=== PATIENT | female | born 1985 | race Hispanic/Latino ===

== ENCOUNTER → 2020-12-14 10:18 | Outpatient (CLI) | payer OTHER, SELFPAY ==
[2020-12-14 11:28] LABS: Add Manual Diff / Slide Review NO; Basophils Absolute Auto 0 /uL (0-100); Basophils Percent Auto 0.2 % (0-2); Eosinophils Absolute Auto 200 /uL (0-450); Eosinophils Percent Auto 2.8 % (2-4); Hematocrit 42.4 % (36-46); Lymphocytes Absolute Auto 2700 /uL (1100-4500); Lymphocytes Percent Auto 34.4 % (25-40); Mean Corpuscular HGB Conc 32.9 % (30-36); Mean Corpuscular Hemoglobin 28.6 PG (26-34); Mean Corpuscular Volume 86.9 fL (80-100); Monocytes Absolute Auto 400 /uL (0-900); Monocytes Percent Auto 5.8 % (3-14); Neutrophils Absolute Auto 4400 /uL (1500-7000); Neutrophils Percent Auto 56.8 % (50-75); Platelet Count 243 X10^3/uL (150-400); Red Blood Cell Count 4.88 X10^6/uL (4.0-5.2); Red Cell Distribution Width 12.9 % (11.6-14.8); White Blood Cell Count 7.7 X10^3/uL (4.5-11.0)
[2020-12-14 11:36] LABS: Alanine Aminotransferase 18 IU/L (<35); Albumin 4.5 g/dL (3.5-5.0); Albumin Globulin Ratio 1.6 (1.0-2.8); Alkaline Phosphatase 55 U/L (38-126); Aspartate Aminotransferase 23 IU/L (14-36); BUN Creatinine Ratio 12.3 (6-22); Bilirubin Total 0.4 mg/dL (0.2-1.3); Blood Urea Nitrogen 9 mg/dL (7-17); Calcium 9.3 mg/dL (8.4-10.2); Carbon Dioxide 27 mmol/L (22-32); Chloride 106 mmol/L (98-107); Cholesterol 145 mg/dL (140-199); Estimated Glomerular Filt Rate > 60.0 mL/min (>60); Globulin 2.9 g/dL (1.7-4.1); Glucose 105 mg/dL (70-100); HDL Cholesterol 56 mg/dL (40-60); HEMOLYSIS < 15 (0-50); LDL Cholesterol Calculated 81 mg/dL (<100); Potassium 4.3 mmol/L (3.4-5.1); Sodium 138 mmol/L (137-145); Total Protein 7.4 g/dL (6.3-8.2); Triglycerides 40 mg/dL (35-150)
== END ==
PROVIDERS: PCP Registered Nurse; Referring Provider Registered Nurse; Visit Provider Registered Nurse
DX: K64.9 Unspecified hemorrhoids (principal); Z82.49 Family history of ischemic heart disease and other diseases of the circulatory system; Z86.32 Personal history of gestational diabetes
CPT/HCPCS: 36415; 80053; 80061; 85025

== ENCOUNTER → 2021-01-17 10:24 | Outpatient (CLI) | payer OTHER, SELFPAY ==
[2021-01-17 11:29] LABS: COVID19 -Nasal RAPID Negative (Negative)
== END ==
PROVIDERS: PCP Registered Nurse; Referring Provider Surgery; Visit Provider Surgery
DX: Z20.822 Contact with and (suspected) exposure to COVID-19 (principal)
CPT/HCPCS: 87635; C9803

== ENCOUNTER 2021-01-18 09:17 | Day surgery (SDC) | payer OTHER, SELFPAY ==
[2021-01-17 08:46] VITALS: BMI 25.0
[2021-01-18] VITALS (7 sets, daily range): BP systolic 112–136; BP diastolic 60–86; PULSE 65–102; RESP 12–16; TEMP 36.3–36.8; O2SAT 90–99; BMI 25.0
--- NOTE | 2021-01-18 | PATH_ITS ---
[facility] Accession Number: [id number] . 01 Material submitted: . hemorrhoids - HEMORRHOIDS . 01 Clinical history: . SDC . 02 Diagnosis: Hemorrhoids, Hemorrhoidectomy: Portions of hemorrhoid x 4; negative for atypia, dysplasia, or malignancy. [facility] 01/21/2021 1054 Local . 02 Electronically signed: . Birdie Ho MD, Pathologist NPI- [id number] . 01 Gross description: . The specimen is received in formalin, labeled hemorrhoids and consists of four pink-purple wrinkled fragments of skin and mucosa measuring 3.0 x 2.5 x 1.5 cm in aggregate and ranging from 0.6-1.8 cm. The margins are inked blue. The specimen is entirely submitted in cassettes A1-A3. ([id number]) /V 01/19/2021 1126 Local . 02 Pathologist provided ICD-10: K64.9 . 02 CPT . 872508 Performed at: 01 [facility] [address] [place] [address], [place], [place] [id number] MD Isaias Aguilar MD Phone: [phone] Performed at: 02 [facility] [address] [place], [place] [id number] MD Adilia Cortes MD Phone: [phone]
--- NOTE | 2021-01-18 09:55 | PM.PREOP ---
Pre-operative Note Interval Note History & Physical reviewed/Exam performed by Physician: Yes Changes to H&P: No
[2021-01-18] MEDS: LACTATED RINGERS 1,000 ML 100 ML IV (09:59)
--- NOTE | 2021-01-18 10:28 | SUR.OPER ---
Prone on padded OR bed, head in foam head support, gel chest rolls, gel pad under knees, pillow under lower legs, toes free of pressure, arms secured on padded arm boards at <90 degrees abduction. Safety belt at thigh.
[2021-01-18] MEDS: BUPIVACAINE 0.25% (PF) VIAL 30 ML INJ (10:33)
[2021-01-18] MEDS: BUPIVACAINE LIPOSOME 266 MG/20 ML VIAL INJ (10:34)
[2021-01-18] MEDS: DIBUCAINE 1% OINT 28 GM 1 APPLIC TOP (10:35)
--- NOTE | 2021-01-18 11:01 | PM.OP.1 ---
Operative Date/Time/Diagnoses Date of procedure: 01/18/21 Time of procedure: 11:01 Pre-op diagnosis: Internal hemorrhoids Post-op diagnosis: same Procedure & Clinicians Procedure: Excisional hemorrhoidectomy x3 Same procedure as scheduled: Yes Indications: Prolapsing bleeding hemorrhoids Surgeon: Nimesh Sal Anesthesia Type: General Operative Notes Findings: Grade 3 hemorrhoids with internal and external component Specimen(s): other (Hemorrhoids) Estimated Blood Loss (mL): 50 Procedure in detail: The patient was brought to the operating room placed supine on the table. Bilateral lower extremity compression devices were applied. General anesthesia was induced and they were intubated with an endotracheal tube. They were then placed into prone position and appropriately padded. They were then prepped and draped in usual sterile fashion. Time-out was performed. Rectal block was performed by injecting 20 mL of Exparel into the intersphincteric groove. An internal examination of the anal canal was made. The right anterior and right posterior and left lateral hemorrhoid pedicles freely prolapsed consistent with grade 3. Beginning with the left lateral pedicle it was grasped elevated and excised with electrocautery off the internal sphincter. The mucosal defect was then closed with a running -0 Vicyrl suture. Hemostasis was checked. The procedure was then repeated for the right anterior and posterior. The specimens were passed off the field. Wound was irrigated with saline. Gelfoam coated in Dibucaine ointment 1% was then placed into the anal canal. Sponge and instrument counts were correct at the end of the procedure. They emerged from anesthesia were extubated and transferred to the postoperative care unit in stable condition. Complications: none Post-operative Condition: stable Disposition: same day surgery
[2021-01-18] MEDS: OXYCODONE/ACETAMINOPHEN 5/325 TABLET 1 TAB PO ×2 (11:27→12:04)
[2021-01-18] MEDS: BENZOCAINE/MENTHOL 1 LOZ PKT 1 EACH PO (11:33)
== END 2021-01-18 12:20 | disposition home or self-care (01) ==
PROVIDERS: PCP Registered Nurse; Referring Provider Surgery; Visit Provider Surgery
PROC: (CPT 46260; principal; 2021-01-18 10:15)
DX: K64.2 Third degree hemorrhoids (principal)
CPT/HCPCS: 46260; C9290; J0330; J1100; J2405; J2704; J3010

== ENCOUNTER → 2021-05-04 09:49 | Outpatient (CLI) | payer OTHER, SELFPAY ==
[2021-05-04 11:37] LABS: COVID19 -Nasal RAPID Negative (Negative)
== END ==
PROVIDERS: PCP Registered Nurse; Referring Provider Surgery; Visit Provider Surgery
DX: Z20.822 Contact with and (suspected) exposure to COVID-19 (principal); Z01.812 Encounter for preprocedural laboratory examination
CPT/HCPCS: 87635; C9803

== ENCOUNTER 2021-05-05 09:49 | Day surgery (SDC) | payer OTHER, SELFPAY ==
[2021-04-26 08:33] VITALS: BMI 24.1
[2021-05-05] VITALS (9 sets, daily range): BP systolic 114–138; BP diastolic 75–97; PULSE 76–93; RESP 11–19; TEMP 36.1–36.7; O2SAT 97–100; BMI 24.1
[2021-05-05] MEDS: GABAPENTIN 300 MG CAPSULE PO (10:42)
[2021-05-05] MEDS: SCOPOLAMINE 1 PATCH TOP (10:42)
[2021-05-05] MEDS: ACETAMINOPHEN 325 MG TABLET 975 MG PO (10:43)
--- NOTE | 2021-05-05 10:43 | PM.HP.1 ---
History of Present Illness History of Present Illness Date Patient Seen: 05/05/21 Time Patient Seen: 10:43 Chief complaint: SDC Narrative: 35 year old woman with history of hemorrhoid disease here for elective excisional hemorrhoidectomy. No interval changes in health. Please refer to the H&P from March 2021 for further detail. Patient History Medical History Cervical cancer screening Headache, migraine (~2009) Hemorrhoids (~2013) Surgical History Anesthesia History of surgical removal of ganglion cyst (11/2016) Hx of hemorrhoidectomy (01/18/21) Hx of tubal ligation (12/2018) Family & Social History Family History Grandmother Hypertension Diabetes mellitus Cancer History of heart disease Stroke Grandmother Breast cancer Mother Hypertension Social History: household members spouse,children Tobacco & Substance use: Smoking Status Never smoker alcohol intake never Substance Use Type does not use Meds Home Medications and Allergies Home Medications Medication Instructions Recorded Confirmed Type escitalopram oxalate 20 mg tablet 20 mg PO DAILY #30 tab 03/21/21 05/05/21 Rx (Lexapro) Allergies Allergy/AdvReac Type Severity Reaction Status Date / Time sweet potato Allergy Severe throut Verified 05/05/21 10:02 itchy, eye swelling and itchy. Exam Vital Signs (past 8 hours): - 05/05/21 10:04 05/05/21 10:28 Temperature 98 F 98 F Pulse Rate 84 84 Respiratory Rate 18 18 Blood Pressure 138/84 138/84 Pulse Oximetry 100 100 Oxygen Delivery Method Room Air Narrative Exam Narrative: Constitutional-She is oriented to person, place and time. No apparent distress Cardiovascular- regular rate, no peripheral edema Pulmonary-unlabored respiratory effort, no audible wheezing Abdominal-soft, non-tender, non-distended Musculoskeletal-no cyanosis or clubbing Neurological-nonfocal, normal strength throughout, normal gait. Skin-warm and dry Assessment & Plan Assessment and plan (1) Hemorrhoids: Qualifiers: Hemorrhoid type: third degree Qualified Code(s): K64.2 - Third degree hemorrhoids Status: Chronic Assessment & Plan narrative: 35F with grade 3 internal hemorrhoids here for elective excisional hemorrhoidectomy. Procedure reviewed with patient. Risks benefits and alternatives discussed. Risks including bleeding, infection, incontinence, reoccurence were discussed. She is in agreement with this plan. Time Spent With Patient Critical Care time: I spent a total of [] minutes of critical care time on this patient's care today; this time is exclusive of procedural time.
[2021-05-05] MEDS: CEFAZOLIN 1 GM VIAL 2 GM IV (11:08)
[2021-05-05] MEDS: BUPIVACAINE 0.25% (PF) VIAL 30 ML INJ (11:28)
[2021-05-05] MEDS: BUPIVACAINE LIPOSOME 266 MG/20 ML VIAL INJ (11:28)
[2021-05-05] MEDS: DIBUCAINE 1% OINT 28 GM 1 APPLIC TOP (11:29)
[2021-05-05] MEDS: OXYCODONE IR 5 MG TABLET PO (12:42)
--- NOTE | 2021-05-05 18:37 | PM.OP.1 ---
Operative Date/Time/Diagnoses Date of procedure: 05/05/21 Time of procedure: 18:37 Pre-op diagnosis: internal hemorrhoids Post-op diagnosis: same Procedure & Clinicians Procedure: excision of perianal skin tags Same procedure as scheduled: No Indications: Symptomatic hemorrhoids Surgeon: Nimesh Sal Anesthesia Type: General Operative Notes Findings: Grade 1-2 internal hemorrhoids Specimen(s): none sent Estimated Blood Loss (mL): 20 Procedure in detail: The patient was brought to the operating room placed supine on the table. Bilateral lower extremity compression devices were applied. General anesthesia was induced and they were intubated with an endotracheal tube. They were then placed into prone position and appropriately padded. They were then prepped and draped in usual sterile fashion. Time-out was performed. Rectal block was performed by injecting 20 mL of Exparel into the intersphincteric groove. An internal examination of the anal canal was made. The internal hemorrhoids involved the right anterior and posterior columns and were grade 1-2. No excision of the internal hemorrhoid tissue was necessary. She did have two very large perianal skin tags which were exicsed with electrocuatery. The mucosal defects were closed with interupted vircyl suture. Wound was irrigated with saline. Gelfoam coated in Dibucaine ointment 1% was then placed into the anal canal. Sponge and instrument counts were correct at the end of the procedure. They emerged from anesthesia were extubated and transferred to the postoperative care unit in stable condition. Complications: none Post-operative Condition: stable Disposition: same day surgery
== END 2021-05-05 13:24 | disposition home or self-care (01) ==
PROVIDERS: PCP Registered Nurse; Referring Provider Surgery; Visit Provider Surgery
PROC: (CPT 46230; principal; 2021-05-05 11:15)
DX: K64.4 Residual hemorrhoidal skin tags (principal); K64.1 Second degree hemorrhoids
CPT/HCPCS: 46230; 82962; C9290; J0330; J0690; J1100; J1885; J2250; J2405; J2704; J3010

== ENCOUNTER 2021-09-21 16:20 | Emergency (ER) | payer OTHER, SELFPAY ==
[2021-09-21 16:30] VITALS: BP 145/97; PULSE 83; RESP 18; TEMP 36.9; O2SAT 100; BMI 24.0
--- NOTE | 2021-09-21 16:48 | ED_ITS ---
HPI - URI/Sore Throat <Adilia Stauffer, [facility] - Last Filed: 09/21/21 17:39> General Chief Complaint: Upper Respiratory Symptoms Stated Complaint: COVID POS./SOB/FEVER Time Seen by Provider: 09/21/21 16:31 History of Present Illness HPI Narrative: 36-year-old female presents to the emergency department for COVID symptoms which include muscle aches, dry cough, fatigue, diarrhea, nausea without vomiting, and fever 3 days. Patient states that she tested positive for COVID 4 days ago. Patient sources having a headache, and the above symptoms. She states that she has tried Sudafed but she does not have much congestion so that did not help very much. She denies any wheezing, difficulty breathing, chest pain or pressure, difficulty swallowing, or other symptom. She has had nausea without vomiting and diarrhea multiple times per day. She states that she is able to drink water and stay hydrated, and she has kept down food. Patient has been taking Tylenol at home with some relief. Last dose of Tylenol was at 2:15 p.m. Related Data Previous Rx's Medication Instructions Recorded acetaminophen 325 mg capsule 650 mg PO QID PRN #60 cap 05/05/21 (Tylenol) docusate sodium 100 mg capsule 100 mg PO BID #30 cap 05/05/21 (Colace) ibuprofen 200 mg tablet 400 mg PO Q6H #60 tab 05/05/21 oxycodone 5 mg tablet See Rx Instructions .ROUTE 05/05/21 .COMPLEX PRN #30 tab oxycodone 5 mg tablet 5 mg PO Q4H PRN #50 tab 05/18/21 escitalopram oxalate 20 mg tablet 20 mg PO DAILY #30 tab 07/28/21 (Lexapro) albuterol sulfate 90 mcg/actuation 1 inh INHALATION QID PRN #8.5 g 09/21/21 aerosol inhaler benzonatate 100 mg capsule 100 mg PO BID PRN #20 cap 09/21/21 loperamide 2 mg tablet 2 mg PO Q6H PRN #20 tab 09/21/21 methocarbamol 500 mg tablet 500 mg PO BEDTIME PRN #14 tab 09/21/21 ondansetron 4 mg disintegrating 4 mg PO Q8H PRN #10 tab 09/21/21 tablet Allergies Allergy/AdvReac Type Severity Reaction Status Date / Time sweet potato Allergy Severe throut Verified 05/18/21 09:45 itchy, eye swelling and itchy. Review of Systems <BREANNE Jesus - Last Filed: 09/21/21 17:39> Review of Systems Narrative: General: Endorses fatigue, fever, general malaise Head/Neck: Endorses mild headache, denies neck pain, dizziness Eyes: denies visual changes, eye pain Cardio: denies chest pain, palpitations, edema Respiratory: denies dyspnea, endorses dry cough, denies orthopnea, denies histo ry of asthma or wheezing GI: denies abdominal pain or vomiting, endorses having nausea and diarrhea : denies dysuria, hematuria, urinary retention, frequency or incontinence MSK: denies joint pain, muscle weakness Skin: denies rash, itching, skin lesions or other Neuro: denies numbness, tingling Patient History <BREANNE Jesus - Last Filed: 09/21/21 17:39> Medical History Cervical cancer screening Headache, migraine (~2009) Hemorrhoids (~2013) Surgical History Anesthesia History of surgical removal of ganglion cyst (11/2016) Hx of hemorrhoidectomy (01/18/21) Hx of tubal ligation (12/2018) Family History Grandmother Hypertension Diabetes mellitus Cancer History of heart disease Stroke Grandmother Breast cancer Mother Hypertension Social History marital status: household members: spouse and children Smoking Status: Never smoker alcohol intake: never substance use type: does not use Smoking Status: Never smoker Substance Use Type: does not use Exam <BREANNE Jesus - Last Filed: 09/21/21 17:39> Narrative Exam Narrative: Independently reviewed vitals signs and nursing notes. General: Cooperative, comfortable, in no acute distress, well developed and well groomed Head/Neck: Normal visual inspection and supple, atraumatic, no JVD or lymphadenopathy. Normal facial exam Eyes: Pupils equal round and reactive, EOMI, conjunctiva normal, no scleral icterus or injections Nose: External nose normal, nares patent, +rhinorrhea, without purulent drainage Mouth/Throat: uvula midline, moist mucus membranes, posterior pharynx with erythema Cardio: Regular rate and rhythm, no peripheral edema, warm extremities Respiratory: Normal respiratory effort, able to speak in complete sentences without audible wheezing, stridor, or rales. No retractions. No tachypnea. GI: Abdomen soft, nontender to palpation x4 quadrants, non-distended, no masses or exquisite tenderness with exam, no flank tenderness MSK: Moves all extremities, neurovascularly intact Skin: Normal capillary refill, no rash Neuro: Normal speech and cognition, normal gait, A&O x3, tone normal, moves all extremities Psych: Mental status is grossly normal, speech is clear, congruent mood, normal affect Initial Vital Signs Initial Vital Signs: Vital Signs Temperature 98.5 F 09/21/21 16:30 Pulse Rate 83 09/21/21 16:30 Respiratory Rate 18 09/21/21 16:30 Blood Pressure 145/97 H 09/21/21 16:30 Pulse Oximetry 100 09/21/21 16:30 <Pierce Barrientos DO - Last Filed: 09/21/21 17:40> Initial Vital Signs Initial Vital Signs: Vital Signs Temperature 98.5 F 09/21/21 16:30 Pulse Rate 83 09/21/21 16:30 Respiratory Rate 18 09/21/21 16:30 Blood Pressure 145/97 H 09/21/21 16:30 Pulse Oximetry 100 09/21/21 16:30 Scores <BREANNE Jesus - Last Filed: 09/21/21 17:39> Octavio' Criteria for PE Clinical signs and symptoms of DVT: No PE is #1 Dx or equally likely: No Heart rate > 100: No Immobilization at least 3 days or surg in previous 4 weeks: No History of PE or DVT: No Hemoptysis: No Malignancy w/Treatment within 6 months or palliative: No Wells' PE Score total: 0 <Pierce Barrientos DO - Last Filed: 09/21/21 17:40> Wells' Criteria for PE Wells' PE Score total: 0 Course <BREANNE Jesus - Last Filed: 09/21/21 17:39> Orders Ordered: Discontinued Medications Benzonatate (Benzonatate 100 Mg Capsule) 100 mg PO NOW ONE Stop: 09/21/21 16:47 Last Admin: 09/21/21 17:29 Dose: 100 mg Documented by: RA Ketorolac Tromethamine (Ketorolac 30 Mg/Ml Vial) 15 mg IV NOW ONE Stop: 09/21/21 16:47 Ketorolac Tromethamine (Ketorolac 30 Mg/Ml Vial) 15 mg IM NOW ONE Stop: 09/21/21 17:05 Last Admin: 09/21/21 17:29 Dose: 15 mg Documented by: RA Loperamide HCl (Loperamide 2 Mg Capsule) 2 mg PO NOW ONE Stop: 09/21/21 16:51 Last Admin: 09/21/21 17:28 Dose: 2 mg Documented by: RA Ondansetron HCl (Ondansetron 4 Mg Odt) 4 mg SL NOW ONE Stop: 09/21/21 16:47 Last Admin: 09/21/21 17:29 Dose: 4 mg Documented by: RA Vital Signs Vital signs: Vital Signs - 8 hr 09/21/21 16:30 09/21/21 17:34 Temperature 98.5 F Pulse Rate 83 87 Respiratory Rate 18 18 Blood Pressure 145/97 H 140/72 Pulse Oximetry 100 99 <Pierce Barrientos DO - Last Filed: 09/21/21 17:40> Orders Ordered: Discontinued Medications Benzonatate (Benzonatate 100 Mg Capsule) 100 mg PO NOW ONE Stop: 09/21/21 16:47 Last Admin: 09/21/21 17:29 Dose: 100 mg Documented by: RA Ketorolac Tromethamine (Ketorolac 30 Mg/Ml Vial) 15 mg IV NOW ONE Stop: 09/21/21 16:47 Ketorolac Tromethamine (Ketorolac 30 Mg/Ml Vial) 15 mg IM NOW ONE Stop: 09/21/21 17:05 Last Admin: 09/21/21 17:29 Dose: 15 mg Documented by: RA Loperamide HCl (Loperamide 2 Mg Capsule) 2 mg PO NOW ONE Stop: 09/21/21 16:51 Last Admin: 09/21/21 17:28 Dose: 2 mg Documented by: RA Ondansetron HCl (Ondansetron 4 Mg Odt) 4 mg SL NOW ONE Stop: 09/21/21 16:47 Last Admin: 09/21/21 17:29 Dose: 4 mg Documented by: RA Vital Signs Vital signs: Vital Signs - 8 hr 09/21/21 16:30 09/21/21 17:34 Temperature 98.5 F Pulse Rate 83 87 Respiratory Rate 18 18 Blood Pressure 145/97 H 140/72 Pulse Oximetry 100 99 MDM - URI/Sore Throat <BREANNE Jesus - Last Filed: 09/21/21 17:39> Lab Data Labs: Point of Care Testing Test Results Negative Urine Dip Bedside Urine Glucose Negative Bedside Urine Bilirubin - Negative Bedside Urine Ketone - Negative Urine Specific [place] 1.015 Bedside Urine Occult Blood - Negative Bedside Urine pH 6.0 Bedside Urine Protein - Negative Bedside Urine Urobilinogen - Negative Bedside Urine Nitrite - Negative Bedside Urine Leukocytes - Negative Esterase MDM Narrative Medical decision making narrative: 36-year-old female COVID vaccinated x3 who presents to the emergency department after testing positive for COVID 4 days ago complaining sore throat, fever, fatigue, diarrhea, nausea without vomiting, a dry cough, muscle aches, and headache. Patient has not had any vomiting and is tolerating p.o. COVID (+) on day 4 of symptoms without hypoxia, respiratory distress, dehydration, or focal exam to suggest secondary bacterial infection. Patient was given Tessalon Perles, Toradol, UA was negative for infection, urine was negative, she was also given loperamide for diarrhea and Zofran. Discussed CDC guidelines for quarantine, mask wearing, physical distancing, and infection prevention measures such as frequent handwashing. Discussed supportive treatments: Tylenol/Motrin as needed for pain/fever. OTC decongestant medications and/or antihistamines for symptomatic relief. Maintain adequate fluid intake. Follow- up with PCP as directed. Return to clinic/ER instructions discussed for new, not improving, or worsening symptoms. All questions answered. Patient requests refill of her albuterol inhaler for her history of asthma, this was given to her as well. Discussed with her that albuterol will not help her COVID infection improve but if she is having shortness of breath and wheezing associated with her asthma due to her illness than it is indicated. Patient understands to follow-up with her primary care [facility]. Patient is appropriate and amenable to discharge home. Vital signs are stable on repeat examination is unremarkable. Patient has been informed of results. Patient has been given strict return to ER precautions for any new or worsening symptoms. Patient understands to follow up closely with outpatient providers as instructed. Patient understands plan and agrees to discharge home. All questions and concerns answered at this time. <Pierce Barrientos, DO - Last Filed: 09/21/21 17:40> Lab Data Labs: Point of Care Testing Test Results Negative Urine Dip Bedside Urine Glucose Negative Bedside Urine Bilirubin - Negative Bedside Urine Ketone - Negative Urine Specific [place] 1.015 Bedside Urine Occult Blood - Negative Bedside Urine pH 6.0 Bedside Urine Protein - Negative Bedside Urine Urobilinogen - Negative Bedside Urine Nitrite - Negative Bedside Urine Leukocytes - Negative Esterase Discharge Plan Departure Patient Disposition: Home Clinical Impression: COVID-19 Instructions: DI for COVID-19 (Suspected or Confirmed ), Coronavirus Disease 2019 Activity Restrictions/Additional Instructions: *You have been diagnosed with COVID illness and all the miserable symptoms that come along with it. I am sorry for high feel, I do think that you might start to get better in the next 2-3 days. Please stay hydrated with electrolyte containing drinks, eat food at least a couple times per day, especially with medication. Take ibuprofen 600 mg every 6 hours as needed for your pain, Tylenol 650 mg every 6 hours as needed as well. You may take loperamide for your diarrhea, Zofran for nausea and vomiting to help you stay hydrated,, Tessalon Perles for cough, and Robaxin for your muscle aches. These are all breakthrough medications for your symptoms, please continue to take Tylenol and ibuprofen to help with your pain and fever. Stay hydrated like it is your job. Please return to the emergency department for any new or worsening symptoms, inability to care for yourself at home, worsening chest pain, or shortness of breath. I hope you feel better soon. *What to do: *Please continue to take your regular medications as directed. [x ] New medication prescriptions sent to your pharmacy: [[facility]] [ ] New medication written as a paper prescription [ ] No new medications given *Please follow up with your primary care provider in 2-3 days, call for an appointment. Let them know you were seen in the Emergency Department and that we ask that you be seen in follow up. We will electronically transmit a record of today's note if your PCP is in our system *If you do not have a primary care provider please contact the [facility] Resource line at [phone]. They will ask some questions about your medical history and help get you set up with a doctor in the community. *Return to Emergency Department if you should have any new, worsening or concerning symptoms, such as [fever greater than 101F, chills, worsening pain, p ersistent vomiting or other bothersome symptoms] Prescriptions: New loperamide 2 mg tablet 2 mg PO Q6H PRN (Reason: loose stool) Qty: 20 0RF methocarbamol 500 mg tablet 500 mg PO BEDTIME PRN (Reason: muscle aches) Qty: 14 0RF benzonatate 100 mg capsule 100 mg PO BID PRN (Reason: cough) Qty: 20 0RF ondansetron 4 mg tablet,disintegrating 4 mg PO Q8H PRN (Reason: nausea and vomiting) Qty: 10 0RF albuterol sulfate 90 mcg/actuation HFA aerosol inhaler 1 inh inhalation QID PRN (Reason: shortness of breath or wheezing) Qty: 8.5 0RF No Action escitalopram oxalate [Lexapro] 20 mg tablet 20 mg PO DAILY Qty: 30 3RF oxycodone 5 mg tablet 5 mg PO Q4H PRN (Reason: pain) Qty: 50 0RF Rx Instructions: 1-2 tabs every 4 hrs as needed ibuprofen 200 mg tablet 400 mg PO Q6H Qty: 60 0RF docusate sodium [Colace] 100 mg capsule 100 mg PO BID Qty: 30 0RF oxycodone 5 mg tablet See Rx Instructions .ROUTE .COMPLEX PRN (Reason: pain) Qty: 30 0RF Rx Instructions: 1-2 tabs every 6 hrs as needed for pain acetaminophen [Tylenol] 325 mg capsule 650 mg PO QID PRN (Reason: pain) Qty: 60 0RF Referrals: Tito Ramirez ARNP [Primary Care Provider] - <Pierce Barrientos DO - Last Filed: 09/21/21 17:40> Cosign ED Attending Cosignature Attestation: Dr Barrientos Co-Sign Statement: I was available for consultation during this patient's emergency department visit. This chart is signed by myself for administrative purposes only. I did not have direct contact with this patient during this visit. They were seen independently by the APC.
[2021-09-21] MEDS: LOPERAMIDE 2 MG CAPSULE PO (17:28)
[2021-09-21] MEDS: KETOROLAC 30 MG/ML VIAL 15 MG IM (17:29)
[2021-09-21] MEDS: ONDANSETRON 4 MG ODT SL (17:29)
[2021-09-21] MEDS: BENZONATATE 100 MG CAPSULE PO (17:29)
[2021-09-21 17:34] VITALS: BP 140/72; PULSE 87; RESP 18; O2SAT 99
== END 2021-09-21 17:41 | disposition home or self-care (01) ==
PROVIDERS: Emergency Provider Nurse Practitioner Critical Care Medicine; PCP Registered Nurse
DX: U07.1 COVID-19 (principal); R51.9 Headache, unspecified
CPT/HCPCS: 81003; 81025; 96372; 99283; J1885

== ENCOUNTER 2021-09-27 19:30 | Emergency (ER) | payer OTHER, SELFPAY ==
[2021-09-27 19:58] VITALS: BP 129/85; PULSE 78; RESP 18; TEMP 37.1; O2SAT 97; BMI 24.9
--- NOTE | 2021-09-27 21:08 | ED_ITS ---
HPI - General Adult General Chief complaint: Urogenital-Female Stated complaint: COVID + 10days, back pain Time Seen by Provider: 09/27/21 20:05 Source: patient Mode of arrival: Ambulatory History of Present Illness HPI narrative: 36-year-old female. Has had COVID symptoms for the past 10 days. She knows that she has COVID she has tested positive. She feels like her symptoms have been improving over the past 24 hours but not completely gone. She is here for mid back pain. She has had a urinary tract infection that has caused pain like this in the past not was what she was concerned that she may be having currently. Related Data Previous Rx's Medication Instructions Recorded acetaminophen 325 mg capsule 650 mg PO QID PRN #60 cap 05/05/21 (Tylenol) docusate sodium 100 mg capsule 100 mg PO BID #30 cap 05/05/21 (Colace) ibuprofen 200 mg tablet 400 mg PO Q6H #60 tab 05/05/21 oxycodone 5 mg tablet See Rx Instructions .ROUTE 05/05/21 .COMPLEX PRN #30 tab oxycodone 5 mg tablet 5 mg PO Q4H PRN #50 tab 05/18/21 escitalopram oxalate 20 mg tablet 20 mg PO DAILY #30 tab 07/28/21 (Lexapro) albuterol sulfate 90 mcg/actuation 1 inh INHALATION QID PRN #8.5 g 09/21/21 aerosol inhaler benzonatate 100 mg capsule 100 mg PO BID PRN #20 cap 09/21/21 loperamide 2 mg tablet 2 mg PO Q6H PRN #20 tab 09/21/21 methocarbamol 500 mg tablet 500 mg PO BEDTIME PRN #14 tab 09/21/21 ondansetron 4 mg disintegrating 4 mg PO Q8H PRN #10 tab 09/21/21 tablet Allergies Allergy/AdvReac Type Severity Reaction Status Date / Time sweet potato Allergy Severe throut Verified 05/18/21 09:45 itchy, eye swelling and itchy. Review of Systems Constitutional Constitutional: Reports as per HPI, Reports system reviewed and no additional complaints, except as documented and Reports fatigue Respiratory Respiratory: Reports as per HPI and Reports system reviewed and no additional complaints, except as documented Gastrointestinal Gastrointestinal: Reports as per HPI and Reports system reviewed and no additional complaints, except as documented Musculoskeletal Musculoskeletal: Reports back pain Integumentary/Breasts Skin/Breast: Reports system reviewed and no additional complaints, except as documented and Reports as per HPI Endocrine Endocrine: Reports fatigue Hematologic/Lymphatic On Anticoagulants: No Patient History Medical History Cervical cancer screening Headache, migraine (~2009) Hemorrhoids (~2013) Surgical History Anesthesia History of surgical removal of ganglion cyst (11/2016) Hx of hemorrhoidectomy (01/18/21) Hx of tubal ligation (12/2018) Family History Grandmother Hypertension Diabetes mellitus Cancer History of heart disease Stroke Grandmother Breast cancer Mother Hypertension Social History marital status: household members: spouse and children Smoking Status: Never smoker alcohol intake: never substance use type: does not use Smoking Status: Never smoker Substance Use Type: does not use Exam Initial Vital Signs Initial Vital Signs: Vital Signs Temperature 98.7 F 09/27/21 19:58 Pulse Rate 78 09/27/21 19:58 Respiratory Rate 18 09/27/21 19:58 Blood Pressure 129/85 09/27/21 19:58 Pulse Oximetry 97 09/27/21 19:58 HENMT Head: normal to inspection and normocephalic Resp Effort & Inspection: normal respiratory effort Auscultation: clear to auscultation bilaterally Cardio Rate: regular rate Rhythm: regular rhythm GI Inspection: normal to inspection Back/Spine/Pelvis Back: No CVA tenderness Skin General: no rashes or lesions noted Neuro General: patient alert, patient awake and moves all extremities Extrem General: capillary refill normal Psych Appearance: grossly normal and well kempt Course Orders Ordered: ED Orders 09/27/21 21:09 Urine Culture Stat Vital Signs Vital signs: Vital Signs - 8 hr 09/27/21 19:58 Temperature 98.7 F Pulse Rate 78 Respiratory Rate 18 Blood Pressure 129/85 Pulse Oximetry 97 Medical Decision Making Lab Data Labs: Point of Care Testing Test Results Negative Urine Dip Bedside Urine Glucose Negative Bedside Urine Bilirubin - Negative Bedside Urine Ketone - Negative Urine Specific [place] 1.015 Bedside Urine Occult Blood - Negative Bedside Urine pH 6.0 Bedside Urine Protein - Negative Bedside Urine Urobilinogen - Negative Bedside Urine Nitrite - Negative Bedside Urine Leukocytes - Negative Esterase Point of care testing: Point of Care Testing Test Results Negative Urine Dip Bedside Urine Glucose Negative Bedside Urine Bilirubin - Negative Bedside Urine Ketone - Negative Urine Specific [place] 1.015 Bedside Urine Occult Blood - Negative Bedside Urine pH 6.0 Bedside Urine Protein - Negative Bedside Urine Urobilinogen - Negative Bedside Urine Nitrite - Negative Bedside Urine Leukocytes - Negative Esterase MDM Narrative Medical decision making narrative: Patient is not hypoxic. Not tachypneic. Urinalysis today does not show any signs of an infection. Low suspicion for pyelonephritis. I suspect body aches given her recent COVID diagnosis and fevers. A urine culture was pending at the time of her discharge we will contact her if anything is positive and we need to start antibiotics. She was given return precautions. She expressed understanding and agreement. Discharge Plan Departure Patient Disposition: Home Clinical Impression: Back pain Instructions: DI for Low Back Pain Activity Restrictions/Additional Instructions: The urinalysis today is not supportive of a urinary tract infection. A urine culture was pending at the time your discharge we will contact you if we need to start any antibiotics. Continue to take your symptom treatment medications that you have for your COVID-19 diagnosis. Return to the emergency department for any new or worsening symptoms. Prescriptions: No Action escitalopram oxalate [Lexapro] 20 mg tablet 20 mg PO DAILY Qty: 30 3RF oxycodone 5 mg tablet 5 mg PO Q4H PRN (Reason: pain) Qty: 50 0RF Rx Instructions: 1-2 tabs every 4 hrs as needed ibuprofen 200 mg tablet 400 mg PO Q6H Qty: 60 0RF docusate sodium [Colace] 100 mg capsule 100 mg PO BID Qty: 30 0RF oxycodone 5 mg tablet See Rx Instructions .ROUTE .COMPLEX PRN (Reason: pain) Qty: 30 0RF Rx Instructions: 1-2 tabs every 6 hrs as needed for pain acetaminophen [Tylenol] 325 mg capsule 650 mg PO QID PRN (Reason: pain) Qty: 60 0RF loperamide 2 mg tablet 2 mg PO Q6H PRN (Reason: loose stool) Qty: 20 0RF methocarbamol 500 mg tablet 500 mg PO BEDTIME PRN (Reason: muscle aches) Qty: 14 0RF benzonatate 100 mg capsule 100 mg PO BID PRN (Reason: cough) Qty: 20 0RF ondansetron 4 mg tablet,disintegrating 4 mg PO Q8H PRN (Reason: nausea and vomiting) Qty: 10 0RF albuterol sulfate 90 mcg/actuation HFA aerosol inhaler 1 inh inhalation QID PRN (Reason: shortness of breath or wheezing) Qty: 8.5 0RF Referrals: Tito Ramirez ARNP [Primary Care Provider] -
== END 2021-09-27 21:14 | disposition home or self-care (01) ==
PROVIDERS: Emergency Provider Emergency Medicine; PCP Registered Nurse
DX: M54.9 Dorsalgia, unspecified (principal)
CPT/HCPCS: 81003; 81025; 87086; 99282

== ENCOUNTER 2022-01-19 12:57 | Emergency (ER) | payer OTHER, SELFPAY ==
[2022-01-19 13:03] VITALS: BP 134/91; PULSE 105; RESP 15; TEMP 36.5; O2SAT 99; BMI 24.9
[2022-01-19] MEDS: ONDANSETRON 4 MG ODT SL (14:27)
[2022-01-19] MEDS: KETOROLAC 10 MG TABLET PO (14:27)
[2022-01-19] MEDS: LORATADINE 10 MG TABLET PO (14:28)
--- NOTE | 2022-01-19 14:31 | ED_ITS ---
HPI - URI/Sore Throat <Adilia Stauffer, [facility] - Last Filed: 01/19/22 17:46> General Chief Complaint: Upper Respiratory Symptoms Stated Complaint: Sick, JEIMYID in Aug Time Seen by Provider: 01/19/22 14:06 Source: patient Mode of arrival: Ambulatory History of Present Illness HPI Narrative: This is a 36-year-old female who presents to the emergency department saying that she has been ill with upper respiratory symptoms since August when she was diagnosed with COVID. She states that every month she has fevers, h eadaches, congestion, fatigue but denies any other symptoms including nausea vomiting, shortness of breath, wheezing, cough, diarrhea, dysuria, abdominal pain, or any other symptom. Patient states that she has two small children that they have not been ill, she states that she has tried allergy medicine and his health, she endorses being congested today but only for the last two days. She states that she has headaches frequently, states that she took Tylenol earlier today. States that her last menstrual period was five days ago. She denies any new weakness, sensation changes, vertigo, hearing changes or vision changes. Related Data Previous Rx's Medication Instructions Recorded acetaminophen 325 mg capsule 650 mg PO QID PRN pain #60 caps 05/05/21 (Tylenol) docusate sodium 100 mg capsule 100 mg PO BID #30 caps 05/05/21 (Colace) ibuprofen 200 mg tablet 400 mg PO Q6H #60 tabs 05/05/21 oxycodone 5 mg tablet See Rx Instructions .Route 05/05/21 .COMPLEX PRN pain #30 tabs oxycodone 5 mg tablet 5 mg PO Q4H PRN pain #50 tabs 05/18/21 albuterol sulfate 90 mcg/actuation 1 inh inhalation QID PRN shortness 09/21/21 aerosol inhaler of breath or wheezing #8.5 grams benzonatate 100 mg capsule 100 mg PO BID PRN cough #20 caps 09/21/21 loperamide 2 mg tablet 2 mg PO Q6H PRN loose stool #20 09/21/21 tabs methocarbamol 500 mg tablet 500 mg PO BEDTIME PRN muscle aches 09/21/21 #14 tabs ondansetron 4 mg disintegrating 4 mg PO Q8H PRN nausea and 09/21/21 tablet vomiting #10 tabs escitalopram oxalate 20 mg tablet 20 mg PO DAILY #30 tabs 12/16/21 (Lexapro) cephalexin 500 mg capsule 500 mg PO BID 5 days #10 caps 01/19/22 Allergies Allergy/AdvReac Type Severity Reaction Status Date / Time sweet potato Allergy Severe throut Verified 01/19/22 13:03 itchy, eye swelling and itchy. Review of Systems <BREANNE Jesus - Last Filed: 01/19/22 17:46> Review of Systems Narrative: General: denies fever, chills Head/Neck: Endorses having a headache, denies neck pain Eyes: denies visual changes, eye pain Cardio: denies chest pain, palpitations Respiratory: denies shortness of breath, cough GI: denies abdominal pain, nausea, vomiting, or diarrhea : denies dysuria, hematuria or flank pain MSK: denies new joint pain, muscle weakness or swelling Skin: denies rash, itching or wound Neuro: denies numbness, tingling, dizziness Patient History <BREANNE Jesus - Last Filed: 01/19/22 17:46> Medical History Cervical cancer screening Headache, migraine (~2009) Hemorrhoids (~2013) Surgical History Anesthesia History of surgical removal of ganglion cyst (11/2016) Hx of hemorrhoidectomy (01/18/21) Hx of tubal ligation (12/2018) Family History Grandmother Hypertension Diabetes mellitus Cancer History of heart disease Stroke Grandmother Breast cancer Mother Hypertension Social History marital status: household members: spouse and children Smoking Status: Never smoker alcohol intake: never substance use type: does not use Smoking Status: Never smoker alcohol intake frequency: holidays/special occasions only Substance Use Type: does not use Exam <BREANNE Jesus - Last Filed: 01/19/22 17:46> Narrative Exam Narrative: Independently reviewed vitals signs and nursing notes. General: Awake, alert, nontoxic, no cardiorespiratory distress Head/Neck: Atraumatic, neck supple, tenderness over frontal sinuses Eyes: EOMI, conjunctiva normal Nose: nares patent, + rhinorrhea and congestion Mouth/Throat: moist mucus membranes, posterior pharynx without erythema or lesion Cardio: Regular rate and rhythm, no peripheral edema Respiratory: respirations unlabored without wheezing, stridor, or rales. No retractions, hypoxia or tachypnea GI: Abdomen soft, nontender to palpation x4 quadrants, no guarding or rebound tenderness, no CVA tenderness MSK: Moves all extremities, neurovascularly intact, range of motion without deficit Skin: Normal capillary refill, no rash Neuro: Normal speech and cognition, normal gait Initial Vital Signs Initial Vital Signs: Vital Signs Temperature 97.7 F 01/19/22 13:03 Pulse Rate 105 H 01/19/22 13:03 Respiratory Rate 15 01/19/22 13:03 Blood Pressure 134/91 H 01/19/22 13:03 Pulse Oximetry 99 01/19/22 13:03 Oxygen Delivery Method 01/19/22 13:03 <Pierce Barrientos DO - Last Filed: 01/19/22 17:53> Initial Vital Signs Initial Vital Signs: Vital Signs Temperature 97.7 F 01/19/22 13:03 Pulse Rate 105 H 01/19/22 13:03 Respiratory Rate 15 01/19/22 13:03 Blood Pressure 134/91 H 01/19/22 13:03 Pulse Oximetry 99 01/19/22 13:03 Oxygen Delivery Method 01/19/22 13:03 Course <BREANNE Jesus - Last Filed: 01/19/22 17:46> Orders Ordered: ED Orders 01/19/22 14:29 Respiratory Panel (Film Array) Stat 01/19/22 14:30 CBC Auto Diff [Complete Blood Count AUTO DIFF] Stat CMP [Comprehensive Metabolic Panel] Stat Lipase Stat Monotest Stat TSH [Thyroid Stimulating Hormone] Stat 01/19/22 15:57 UA Complete [Urinalysis and Microscopic] Stat Urine Culture Stat Discontinued Medications Ketorolac Tromethamine (Ketorolac 10 Mg Tablet) 10 mg PO NOW ONE Stop: 01/19/22 14:22 Last Admin: 01/19/22 14:27 Dose: 10 mg Documented By: RL Loratadine (Loratadine 10 Mg Tablet) 10 mg PO NOW ONE Stop: 01/19/22 14:22 Last Admin: 01/19/22 14:28 Dose: 10 mg Documented By: LISSETT Ondansetron HCl (Ondansetron 4 Mg Odt) 4 mg SL NOW ONE Stop: 01/19/22 14:22 Last Admin: 01/19/22 14:27 Dose: 4 mg Documented By: LISSETT Vital Signs Vital signs: Vital Signs - 8 hr 01/19/22 13:03 01/19/22 15:37 Temperature 97.7 F Pulse Rate 105 H 88 Respiratory Rate 15 18 Blood Pressure 134/91 H 150/97 H Pulse Oximetry 99 98 Oxygen Delivery Method Room Air Room Air <Pierce Barrientos DO - Last Filed: 01/19/22 17:53> Orders Ordered: ED Orders 01/19/22 14:29 Respiratory Panel (Film Array) Stat 01/19/22 14:30 CBC Auto Diff [Complete Blood Count AUTO DIFF] Stat CMP [Comprehensive Metabolic Panel] Stat Lipase Stat Monotest Stat TSH [Thyroid Stimulating Hormone] Stat 01/19/22 15:57 UA Complete [Urinalysis and Microscopic] Stat Urine Culture Stat Discontinued Medications Ketorolac Tromethamine (Ketorolac 10 Mg Tablet) 10 mg PO NOW ONE Stop: 01/19/22 14:22 Last Admin: 01/19/22 14:27 Dose: 10 mg Documented By: LISSETT Loratadine (Loratadine 10 Mg Tablet) 10 mg PO NOW ONE Stop: 01/19/22 14:22 Last Admin: 01/19/22 14:28 Dose: 10 mg Documented By: LISSETT Ondansetron HCl (Ondansetron 4 Mg Odt) 4 mg SL NOW ONE Stop: 01/19/22 14:22 Last Admin: 01/19/22 14:27 Dose: 4 mg Documented By: LISSETT Vital Signs Vital signs: Vital Signs - 8 hr 01/19/22 13:03 01/19/22 15:37 Temperature 97.7 F Pulse Rate 105 H 88 Respiratory Rate 15 18 Blood Pressure 134/91 H 150/97 H Pulse Oximetry 99 98 Oxygen Delivery Method Room Air Room Air MDM - URI/Sore Throat <BREANNE Jesus - Last Filed: 01/19/22 17:46> Lab Data Result diagrams: 01/19/22 14:30 01/19/22 14:30 Labs: Lab Results 01/19/22 01/19/22 01/19/22 Range/Units 14:29 14:30 14:30 WBC 8.6 (4.5-11.0) X10^3/uL RBC 5.24 H (4.0-5.2) X10^6/uL Hgb 15.4 (12.0-16.0) g/dL Hct 44.7 (36-46) % MCV 85.3 (80-100) fL MCH 29.4 (26-34) PG MCHC 34.5 (30-36) % RDW 12.9 (11.6-14.8) % Plt Count 259 (150-400) X10^3/uL Neut % (Auto) 61.1 (50-75) % Lymph % (Auto) 21.7 L (25-40) % [place] % (Auto) 10.7 (3-14) % Eos % (Auto) 6.1 H (2-4) % Baso % (Auto) 0.4 (0-2) % Neut # (Auto) 5200 (3121-0822) /uL Lymph # (Auto) 1900 (4231-2332) /uL [place] # (Auto) 900 (0-900) /uL Eos # (Auto) 500 H (0-450) /uL Baso # (Auto) 0 (0-100) /uL Sodium 140 (137-145) mmol/L Potassium 4.0 (3.4-5.1) mmol/L Chloride 103 (98-107) mmol/L Carbon Dioxide 27 (22-32) mmol/L BUN 8 (7-17) mg/dL Creatinine 0.73 (0.52-1.04) mg/dL Estimated GFR > 60 (>60) mL/min BUN/Creatinine Ratio 11.0 (6-22) Glucose 101 H (70-100) mg/dL Calcium 9.2 (8.4-10.2) mg/dL Total Bilirubin 0.6 (0.2-1.3) mg/dL AST 24 (14-36) IU/L ALT 27 (<35) IU/L Alkaline Phosphatase 59 (38-126) U/L Total Protein 8.3 H (6.3-8.2) g/dL Albumin 4.8 (3.5-5.0) g/dL Globulin 3.5 (1.7-4.1) g/dL Albumin/Globulin Ratio 1.4 (1.0-2.8) Lipase 62 (23-300) U/L Urine Color Urine Appearance Urine pH (4.5-8.0) Ur Specific [place] (1.000-1.035) Urine Protein (Negative) Urine Glucose (UA) (Negative) g/dL Urine Ketones (NEGATIVE) Urine Occult Blood (Negative) Urine Nitrate (Negative) Urine Bilirubin (NEGATIVE) Urine Urobilinogen (0.2) E.U./dL Ur Leukocyte Esterase (NEGATIVE) Urine RBC (0-5/HPF) Urine WBC (0-5/HPF) Ur Squamous Epith Cells (0-5/HPF) Ur Transition Epith Cell (0-5/HPF) Urine Bacteria (None) Ur Culture Indicated? Chlamy pneumoniae PCR Not detected (Not Detect) Adenovirus (PCR) Not detected (Not Detect) B. pertussis DNA (PCR) Not detected (Not Detecte) B.parapertussis DNA PCR Not detected (Not Detecte) Coronavirus OC43 (PCR) Not detected (Not Detect) Coronavirus HKU1 (PCR) Not detected (Not Detect) Coronavirus 229E (PCR) Detected H (Not Detect) SARS-CoV-2 (PCR) Not detected (Not Detecte) Coronavirus NL63 (PCR) Not detected (Not Detect) Monoscreen (Negative) Human Metapneumovir PCR Not detected (Not Detect) Influenza Type A (PCR) Not detected (Not Detect) Influenza Type B (PCR) Not detected (Not Detect) M. pneumoniae (PCR) Not detected (Not Detect) Parainfluenza 1 (PCR) Not detected (Not Detect) Parainfluenza 2 (PCR) Not detected (Not Detect) Parainfluenza 3 (PCR) Not detected (Not Detect) Parainfluenza 4 (PCR) Not detected (Not Detect) RSV (PCR) Not detected (Not Detect) Entero/Rhino (PCR) Not detected (Not Detect) 01/19/22 01/19/22 Range/Units 14:30 15:57 WBC (4.5-11.0) X10^3/uL RBC (4.0-5.2) X10^6/uL Hgb (12.0-16.0) g/dL Hct (36-46) % MCV (80-100) fL MCH (26-34) PG MCHC (30-36) % RDW (11.6-14.8) % Plt Count (150-400) X10^3/uL Neut % (Auto) (50-75) % Lymph % (Auto) (25-40) % [place] % (Auto) (3-14) % Eos % (Auto) (2-4) % Baso % (Auto) (0-2) % Neut # (Auto) (8116-3863) /uL Lymph # (Auto) (6423-8661) /uL [place] # (Auto) (0-900) /uL Eos # (Auto) (0-450) /uL Baso # (Auto) (0-100) /uL Sodium (137-145) mmol/L Potassium (3.4-5.1) mmol/L Chloride (98-107) mmol/L Carbon Dioxide (22-32) mmol/L BUN (7-17) mg/dL Creatinine (0.52-1.04) mg/dL Estimated GFR (>60) mL/min BUN/Creatinine Ratio (6-22) Glucose (70-100) mg/dL Calcium (8.4-10.2) mg/dL Total Bilirubin (0.2-1.3) mg/dL AST (14-36) IU/L ALT (<35) IU/L Alkaline Phosphatase (38-126) U/L Total Protein (6.3-8.2) g/dL Albumin (3.5-5.0) g/dL Globulin (1.7-4.1) g/dL Albumin/Globulin Ratio (1.0-2.8) Lipase (23-300) U/L Urine Color Yellow Urine Appearance Sl cloudy Urine pH 7.0 (4.5-8.0) Ur Specific [place] <=1.005 (1.000-1.035) Urine Protein Negative (Negative) Urine Glucose (UA) Negative (Negative) g/dL Urine Ketones Negative (NEGATIVE) Urine Occult Blood 2+ H (Negative) Urine Nitrate Negative (Negative) Urine Bilirubin Negative (NEGATIVE) Urine Urobilinogen 0.2 (0.2) E.U./dL Ur Leukocyte Esterase 1+ H (NEGATIVE) Urine RBC 1-5/hpf (0-5/HPF) Urine WBC 10-30/hpf H (0-5/HPF) Ur Squamous Epith Cells 5-10 /hpf H (0-5/HPF) Ur Transition Epith Cell 5-10/hpf H (0-5/HPF) Urine Bacteria Moderate (10-30) H (None) Ur Culture Indicated? Specimen cultured Chlamy pneumoniae PCR (Not Detect) Adenovirus (PCR) (Not Detect) B. pertussis DNA (PCR) (Not Detecte) B.parapertussis DNA PCR (Not Detecte) Coronavirus OC43 (PCR) (Not Detect) Coronavirus HKU1 (PCR) (Not Detect) Coronavirus 229E (PCR) (Not Detect) SARS-CoV-2 (PCR) (Not Detecte) Coronavirus NL63 (PCR) (Not Detect) Monoscreen Negative (Negative) Human Metapneumovir PCR (Not Detect) Influenza Type A (PCR) (Not Detect) Influenza Type B (PCR) (Not Detect) M. pneumoniae (PCR) (Not Detect) Parainfluenza 1 (PCR) (Not Detect) Parainfluenza 2 (PCR) (Not Detect) Parainfluenza 3 (PCR) (Not Detect) Parainfluenza 4 (PCR) (Not Detect) RSV (PCR) (Not Detect) Entero/Rhino (PCR) (Not Detect) MDM Narrative Medical decision making narrative: This is a 36-year-old female presents to the emergency department for ongoing upper respiratory illness symptoms which she states has been present since her COVID infection in August 2021. Patient states that she has congestion right now this is only been present for the last two days, states that she has had fevers on and off over the last few months, endorses that she has children at home but they have not sick. She denies any dysuria or urinary frequency or any other metabolic condition, only endorsed headache, fatigue, and upper respiratory symptoms. Her respiratory panel shows that she is positive for ravi navirus 229 E, no other viruses tested were positive, urine obtained right before discharge which showed it was positive for blood, leukocyte esterase, white blood cells, squamous epithelia cells and transitional cells which may be contaminant but it did also show moderate bacteria. Urine was sent for culture, will follow-up on this. Patient was phoned as these results came in after she was discharged and she was prescribed cephalexin x5 days for b.i.d. dosing. Message was left as to which pharmacy this was left at. Patient was instructed to phone the emergency department if she has any questions about this. She is encouraged to stay hydrated, use Tylenol, ibuprofen as needed for her symptoms, no prescriptions other than her antibiotic for given. Her mono screen was negative today, all other lab work was grossly unremarkable, no leukocytosis, electrolyte derangement, elevation in liver enzymes or other. Her TSH is still pending, will follow-up on this. Patient is appropriate and amenable to discharge home. Vital signs are stable on repeat examination is unremarkable. Patient has been informed of results. Patient has been given strict return to ER precautions for any new or worsening symptoms. Patient understands to follow up closely with outpatient providers as instructed. Patient understands plan and agrees to discharge home. All questions and concerns answered at this time. <Pierce Barrientos, DO - Last Filed: 01/19/22 17:53> Lab Data Labs: Lab Results 01/19/22 01/19/22 01/19/22 Range/Units 14:29 14:30 14:30 WBC 8.6 (4.5-11.0) X10^3/uL RBC 5.24 H (4.0-5.2) X10^6/uL Hgb 15.4 (12.0-16.0) g/dL Hct 44.7 (36-46) % MCV 85.3 (80-100) fL MCH 29.4 (26-34) PG MCHC 34.5 (30-36) % RDW 12.9 (11.6-14.8) % Plt Count 259 (150-400) X10^3/uL Neut % (Auto) 61.1 (50-75) % Lymph % (Auto) 21.7 L (25-40) % [place] % (Auto) 10.7 (3-14) % Eos % (Auto) 6.1 H (2-4) % Baso % (Auto) 0.4 (0-2) % Neut # (Auto) 5200 (2713-7944) /uL Lymph # (Auto) 1900 (3972-6795) /uL [place] # (Auto) 900 (0-900) /uL Eos # (Auto) 500 H (0-450) /uL Baso # (Auto) 0 (0-100) /uL Sodium 140 (137-145) mmol/L Potassium 4.0 (3.4-5.1) mmol/L Chloride 103 (98-107) mmol/L Carbon Dioxide 27 (22-32) mmol/L BUN 8 (7-17) mg/dL Creatinine 0.73 (0.52-1.04) mg/dL Estimated GFR > 60 (>60) mL/min BUN/Creatinine Ratio 11.0 (6-22) Glucose 101 H (70-100) mg/dL Calcium 9.2 (8.4-10.2) mg/dL Total Bilirubin 0.6 (0.2-1.3) mg/dL AST 24 (14-36) IU/L ALT 27 (<35) IU/L Alkaline Phosphatase 59 (38-126) U/L Total Protein 8.3 H (6.3-8.2) g/dL Albumin 4.8 (3.5-5.0) g/dL Globulin 3.5 (1.7-4.1) g/dL Albumin/Globulin Ratio 1.4 (1.0-2.8) Lipase 62 (23-300) U/L Urine Color Urine Appearance Urine pH (4.5-8.0) Ur Specific [place] (1.000-1.035) Urine Protein (Negative) Urine Glucose (UA) (Negative) g/dL Urine Ketones (NEGATIVE) Urine Occult Blood (Negative) Urine Nitrate (Negative) Urine Bilirubin (NEGATIVE) Urine Urobilinogen (0.2) E.U./dL Ur Leukocyte Esterase (NEGATIVE) Urine RBC (0-5/HPF) Urine WBC (0-5/HPF) Ur Squamous Epith Cells (0-5/HPF) Ur Transition Epith Cell (0-5/HPF) Urine Bacteria (None) Ur Culture Indicated? Chlamy pneumoniae PCR Not detected (Not Detect) Adenovirus (PCR) Not detected (Not Detect) B. pertussis DNA (PCR) Not detected (Not Detecte) B.parapertussis DNA PCR Not detected (Not Detecte) Coronavirus OC43 (PCR) Not detected (Not Detect) Coronavirus HKU1 (PCR) Not detected (Not Detect) Coronavirus 229E (PCR) Detected H (Not Detect) SARS-CoV-2 (PCR) Not detected (Not Detecte) Coronavirus NL63 (PCR) Not detected (Not Detect) Monoscreen (Negative) Human Metapneumovir PCR Not detected (Not Detect) Influenza Type A (PCR) Not detected (Not Detect) Influenza Type B (PCR) Not detected (Not Detect) M. pneumoniae (PCR) Not detected (Not Detect) Parainfluenza 1 (PCR) Not detected (Not Detect) Parainfluenza 2 (PCR) Not detected (Not Detect) Parainfluenza 3 (PCR) Not detected (Not Detect) Parainfluenza 4 (PCR) Not detected (Not Detect) RSV (PCR) Not detected (Not Detect) Entero/Rhino (PCR) Not detected (Not Detect) 01/19/22 01/19/22 Range/Units 14:30 15:57 WBC (4.5-11.0) X10^3/uL RBC (4.0-5.2) X10^6/uL Hgb (12.0-16.0) g/dL Hct (36-46) % MCV (80-100) fL MCH (26-34) PG MCHC (30-36) % RDW (11.6-14.8) % Plt Count (150-400) X10^3/uL Neut % (Auto) (50-75) % Lymph % (Auto) (25-40) % [place] % (Auto) (3-14) % Eos % (Auto) (2-4) % Baso % (Auto) (0-2) % Neut # (Auto) (4263-7409) /uL Lymph # (Auto) (0690-9854) /uL [place] # (Auto) (0-900) /uL Eos # (Auto) (0-450) /uL Baso # (Auto) (0-100) /uL Sodium (137-145) mmol/L Potassium (3.4-5.1) mmol/L Chloride (98-107) mmol/L Carbon Dioxide (22-32) mmol/L BUN (7-17) mg/dL Creatinine (0.52-1.04) mg/dL Estimated GFR (>60) mL/min BUN/Creatinine Ratio (6-22) Glucose (70-100) mg/dL Calcium (8.4-10.2) mg/dL Total Bilirubin (0.2-1.3) mg/dL AST (14-36) IU/L ALT (<35) IU/L Alkaline Phosphatase (38-126) U/L Total Protein (6.3-8.2) g/dL Albumin (3.5-5.0) g/dL Globulin (1.7-4.1) g/dL Albumin/Globulin Ratio (1.0-2.8) Lipase (23-300) U/L Urine Color Yellow Urine Appearance Sl cloudy Urine pH 7.0 (4.5-8.0) Ur Specific [place] <=1.005 (1.000-1.035) Urine Protein Negative (Negative) Urine Glucose (UA) Negative (Negative) g/dL Urine Ketones Negative (NEGATIVE) Urine Occult Blood 2+ H (Negative) Urine Nitrate Negative (Negative) Urine Bilirubin Negative (NEGATIVE) Urine Urobilinogen 0.2 (0.2) E.U./dL Ur Leukocyte Esterase 1+ H (NEGATIVE) Urine RBC 1-5/hpf (0-5/HPF) Urine WBC 10-30/hpf H (0-5/HPF) Ur Squamous Epith Cells 5-10 /hpf H (0-5/HPF) Ur Transition Epith Cell 5-10/hpf H (0-5/HPF) Urine Bacteria Moderate (10-30) H (None) Ur Culture Indicated? Specimen cultured Chlamy pneumoniae PCR (Not Detect) Adenovirus (PCR) (Not Detect) B. pertussis DNA (PCR) (Not Detecte) B.parapertussis DNA PCR (Not Detecte) Coronavirus OC43 (PCR) (Not Detect) Coronavirus HKU1 (PCR) (Not Detect) Coronavirus 229E (PCR) (Not Detect) SARS-CoV-2 (PCR) (Not Detecte) Coronavirus NL63 (PCR) (Not Detect) Monoscreen Negative (Negative) Human Metapneumovir PCR (Not Detect) Influenza Type A (PCR) (Not Detect) Influenza Type B (PCR) (Not Detect) M. pneumoniae (PCR) (Not Detect) Parainfluenza 1 (PCR) (Not Detect) Parainfluenza 2 (PCR) (Not Detect) Parainfluenza 3 (PCR) (Not Detect) Parainfluenza 4 (PCR) (Not Detect) RSV (PCR) (Not Detect) Entero/Rhino (PCR) (Not Detect) Discharge Plan Departure Patient Disposition: Home Clinical Impression: Viral respiratory infection UTI (urinary tract infection) Qualifiers: Urinary tract infection type: acute cystitis Hematuria presence: without hematuria Qualified Code(s): N30.00 - Acute cystitis without hematuria Instructions: DI for Urinary Tract Infection (UTI), DI for Viral Upper Respiratory Infection -- Adult Activity Restrictions/Additional Instructions: *You have been diagnosed with a viral respiratory infection, you tested positive for one of the common cold viruses, this will likely run its course in the next 5-7 days. Please try and stay hydrated, if you have congestion, use [id number] antihistamines, allergy medication, and or decongestants like Claritin D for your symptoms. You may use ibuprofen and Tylenol for fever. You should get better in the next few days, thank you for trusting us with your care, no other significant concerns were found on your lab work. Glad that you did not have any pneumonia or any significant findings on your labs, we will call you if your TSH is out of range. Please follow-up with your primary doctor, I hope you feel better soon. *What to do: *Please continue to take your regular medications as directed. [x ] New medication prescriptions sent to your pharmacy: [[facility] ] [ ] New medication written as a paper prescription [ ] No new medications given *Please follow up with your primary care provider in 2-3 days, call for an appointment. Let them know you were seen in the Emergency Department and that we asked that you be seen for follow-up. We will electronically transmit a record of today's note if your PCP is in our system *If you do not have a primary care provider please contact [phone] to establish care with one of the [facility] primary care providers. *Return to Emergency Department if you should have any new, worsening or concerning symptoms, such as [fever greater than 101F, chills, worsening pain, persistent vomiting or other bothersome symptoms] Prescriptions: New cephalexin 500 mg capsule 500 mg PO BID 5 Days Qty: 10 0RF No Action escitalopram oxalate [Lexapro] 20 mg tablet 20 mg PO DAILY Qty: 30 2RF oxycodone 5 mg tablet 5 mg PO Q4H PRN (Reason: pain) Qty: 50 0RF Rx Instructions: 1-2 tabs every 4 hrs as needed ibuprofen 200 mg tablet 400 mg PO Q6H Qty: 60 0RF docusate sodium [Colace] 100 mg capsule 100 mg PO BID Qty: 30 0RF oxycodone 5 mg tablet See Rx Instructions .ROUTE .COMPLEX PRN (Reason: pain) Qty: 30 0RF Rx Instructions: 1-2 tabs every 6 hrs as needed for pain acetaminophen [Tylenol] 325 mg capsule 650 mg PO QID PRN (Reason: pain) Qty: 60 0RF loperamide 2 mg tablet 2 mg PO Q6H PRN (Reason: loose stool) Qty: 20 0RF methocarbamol 500 mg tablet 500 mg PO BEDTIME PRN (Reason: muscle aches) Qty: 14 0RF benzonatate 100 mg capsule 100 mg PO BID PRN (Reason: cough) Qty: 20 0RF ondansetron 4 mg tablet,disintegrating 4 mg PO Q8H PRN (Reason: nausea and vomiting) Qty: 10 0RF albuterol sulfate 90 mcg/actuation HFA aerosol inhaler 1 inh inhalation QID PRN (Reason: shortness of breath or wheezing) Qty: 8.5 0RF Referrals: Colin Man MD [Primary Care Provider] - Visit Report Forms: Patient Portal/API <Pierce Barrientos, DO - Last Filed: 01/19/22 17:53> [facility] ED Attending [facility] Attestation: Dr Barrientos Co-Sign Statement: I was available for consultation during this patient's emergency department visit. This chart is signed by myself for administrative purposes only. I did not have direct contact with this patient during this visit. They were seen independently by the APC.
[2022-01-19 14:43] LABS: Add Manual Diff / Slide Review NO; Basophils Absolute Auto 0 /uL (0-100); Basophils Percent Auto 0.4 % (0-2); Eosinophils Absolute Auto 500 /uL (0-450); Eosinophils Percent Auto 6.1 % (2-4); Hematocrit 44.7 % (36-46); Hemoglobin 15.4 g/dL (12.0-16.0); Lymphocytes Absolute Auto 1900 /uL (1100-4500); Lymphocytes Percent Auto 21.7 % (25-40); Mean Corpuscular HGB Conc 34.5 % (30-36); Mean Corpuscular Hemoglobin 29.4 PG (26-34); Mean Corpuscular Volume 85.3 fL (80-100); Monocytes Absolute Auto 900 /uL (0-900); Monocytes Percent Auto 10.7 % (3-14); Neutrophils Absolute Auto 5200 /uL (1500-7000); Neutrophils Percent Auto 61.1 % (50-75); Platelet Count 259 X10^3/uL (150-400); Red Blood Cell Count 5.24 X10^6/uL (4.0-5.2); Red Cell Distribution Width 12.9 % (11.6-14.8); White Blood Cell Count 8.6 X10^3/uL (4.5-11.0)
[2022-01-19 14:50] LABS: Monotest Negative (Negative)
[2022-01-19 14:57] LABS: Alanine Aminotransferase 27 IU/L (<35); Albumin 4.8 g/dL (3.5-5.0); Albumin Globulin Ratio 1.4 (1.0-2.8); Alkaline Phosphatase 59 U/L (38-126); Aspartate Aminotransferase 24 IU/L (14-36); Bilirubin Total 0.6 mg/dL (0.2-1.3); Blood Urea Nitrogen 8 mg/dL (7-17); Calcium 9.2 mg/dL (8.4-10.2); Carbon Dioxide 27 mmol/L (22-32); Chloride 103 mmol/L (98-107); Estimated Glomerular Filt Rate > 60 mL/min (>60); Globulin 3.5 g/dL (1.7-4.1); Glucose 101 mg/dL (70-100); HEMOLYSIS < 15 (0-50); Lipase 62 U/L (23-300); Sodium 140 mmol/L (137-145); Total Protein 8.3 g/dL (6.3-8.2)
[2022-01-19 15:37] VITALS: BP 150/97; PULSE 88; RESP 18; O2SAT 98
[2022-01-19 15:37] LABS: Adenovirus Not Detected (Not Detect); B. parapertussis Not Detected (Not Detecte); Bordetella pertussis Not Detected (Not Detecte); Chlamydophila pneumoniae Not Detected (Not Detect); Coronavirus 229E Detected (Not Detect); Coronavirus HKU1 Not Detected (Not Detect); Coronavirus NL 63 Not Detected (Not Detect); Coronavirus OC43 Not Detected (Not Detect); Human Metapneumovirus Not Detected (Not Detect); Human Rhinovirus/Enterovirus Not Detected (Not Detect); Influenza A Not Detected (Not Detect); Influenza B Not Detected (Not Detect); Mycoplasma pneumoniae Not Detected (Not Detect); Parainfluenza Virus 1 Not Detected (Not Detect); Parainfluenza Virus 2 Not Detected (Not Detect); Parainfluenza Virus 3 Not Detected (Not Detect); Parainfluenza Virus 4 Not Detected (Not Detect); Respiratory Syncytial Virus Not Detected (Not Detect); SARS- CoV-2 Not Detected (Not Detecte)
[2022-01-19 16:07] LABS: Bilirubin Urine UA NEGATIVE (NEGATIVE); Color Urine UA YELLOW; Glucose Urine UA NEGATIVE (Negative); Ketones Urine UA NEGATIVE (NEGATIVE); Leukocyte Esterase Urine UA 1+ (NEGATIVE); Nitrite Urine UA NEGATIVE (Negative); Occult Blood Urine UA 2+ (Negative); Protein Urine UA NEGATIVE (Negative); Specific Gravity Urine UA <=1.005 (1.000-1.035); Urobilinogen Urine UA 0.2 E.U./dL (0.2)
[2022-01-19 16:16] LABS: Appearance Urine UA SL CLOUDY
[2022-01-19 16:26] LABS: Bacteria Urine Moderate (10-30); Culture Indicated Urine Specimen Cultured; RBC Urine 1-5/HPF (0-5/HPF); Squamous Epithelial Cell Urine 5-10 /HPF (0-5/HPF); Transitional Epi Cells Urine 5-10/HPF (0-5/HPF); WBC Urine 10-30/HPF (0-5/HPF)
[2022-01-19 18:01] LABS: Thyroid Stimulating Hormone 0.341 uIU/mL (0.47-4.68)
== END 2022-01-19 16:04 | disposition home or self-care (01) ==
PROVIDERS: Emergency Provider Nurse Practitioner Critical Care Medicine; PCP Pediatrics
DX: J06.9 Acute upper respiratory infection, unspecified (principal); N30.00 Acute cystitis without hematuria; Z86.16 Personal history of COVID-19; Z20.822 Contact with and (suspected) exposure to COVID-19
CPT/HCPCS: 36415; 80053; 81001; 83690; 84443; 85025; 86318; 87086; 87633; 99283

== ENCOUNTER 2022-01-26 11:53 | Emergency (ER) | payer OTHER, SELFPAY ==
[2022-01-26 12:10] VITALS: BP 143/95; PULSE 75; RESP 15; TEMP 36.6; O2SAT 98; BMI 24.9
[2022-01-26 12:30] LABS: Appearance Urine UA CLEAR; Bilirubin Urine UA NEGATIVE (NEGATIVE); Color Urine UA YELLOW; Glucose Urine UA NEGATIVE (Negative); Ketones Urine UA NEGATIVE (NEGATIVE); Leukocyte Esterase Urine UA NEGATIVE (NEGATIVE); Nitrite Urine UA NEGATIVE (Negative); Occult Blood Urine UA NEGATIVE (Negative); Protein Urine UA NEGATIVE (Negative); Urobilinogen Urine UA 0.2 E.U./dL (0.2)
[2022-01-26 12:33] LABS: pH Urine UA 5.5 (4.5-8.0)
[2022-01-26 12:56] LABS: Bacteria Urine Occasional (0-1); Culture Indicated Urine Cult Not Indicated; RBC Urine None Seen (0-5/HPF); Squamous Epithelial Cell Urine 1-5 /HPF (0-5/HPF); WBC Urine 0-1/HPF (0-5/HPF)
[2022-01-26 13:19] VITALS: BP 160/102; PULSE 81; RESP 20; O2SAT 96
[2022-01-26 13:30] VITALS: BP 133/100; PULSE 102; O2SAT 96
--- NOTE | 2022-01-26 13:50 | ED_ITS ---
HPI - Female Genitourinary <BREANNE Jesus - Last Filed: 01/26/22 15:06> General Chief complaint: Urogenital-Female Stated complaint: States kidney infection is not resolving Time Seen by Provider: 01/26/22 13:08 Source: patient Mode of arrival: Ambulatory History of Present Illness HPI Narrative: This is a 36-year-old female presents to the emergency department same that she still has urinary urgency, suprapubic pressure, and concern for COVID long hauler syndrome. Patient had COVID-19 in August 2021, patient had acute cystitis seven days ago and finished her course of cephalexin, at that time her respiratory panel was positive for non COVID coronavirus. She has been taking Benadryl at night for congestion, denies any shortness of breath, cough, or worsening respiratory infection, endorses taking Tylenol as needed for headache. She endorses having occasional headaches and feeling hot and cold sometimes. Patient denies any fevers, chills, nausea vomiting, diarrhea. She states that she has been drinking plenty of water, reports that her is out of town and she is caring for their children and feeling constant fatigue. She states that she has not felt any better since she had COVID in August and does not know why she still has the symptoms. Patient had follow-up scheduled with her PCP today and was 10 minutes late so she rescheduled for tomorrow, came to the emergency department for evaluation of her symptoms. She denies any shortness of breath, chest pain, significant cough, and states that her symptoms from her respiratory illness are mostly better. Related Data Previous Rx's Medication Instructions Recorded acetaminophen 325 mg capsule 650 mg PO QID PRN pain #60 caps 05/05/21 (Tylenol) albuterol sulfate 90 mcg/actuation 1 inh inhalation QID PRN shortness 09/21/21 aerosol inhaler of breath or wheezing #8.5 grams escitalopram oxalate 20 mg tablet 20 mg PO DAILY #30 tabs 12/16/21 (Lexapro) cephalexin 500 mg capsule 500 mg PO BID 5 days #10 caps 01/27/22 Allergies Allergy/AdvReac Type Severity Reaction Status Date / Time sweet potato Allergy Severe throut Verified 01/26/22 12:10 itchy, eye swelling and itchy. Review of Systems <BREANNE Jesus - Last Filed: 01/26/22 15:06> Review of Systems Narrative: General: denies fever, chills, malaise, sweats, endorses ongoing fatigue Head/Neck: Endorses headache, denies neck pain, dizziness, endorses congestion Eyes: denies visual changes, eye pain Cardio: denies chest pain, palpitations, edema Respiratory: denies dyspnea, has occasional cough but nonproductive GI: denies abdominal pain, nausea, vomiting, or diarrhea : Endorses dysuria, frequency and urgency, denies hematuria, urinary retention, or incontinence MSK: denies joint pain, muscle weakness Skin: denies rash, itching, skin lesions or other Neuro: denies numbness, tingling Patient History <BREANNE Jesus - Last Filed: 01/26/22 15:06> Medical History Cervical cancer screening Headache, migraine (~2009) Hemorrhoids (~2013) Surgical History Anesthesia History of surgical removal of ganglion cyst (11/2016) Hx of hemorrhoidectomy (01/18/21) Hx of tubal ligation (12/2018) Family History Grandmother Hypertension Diabetes mellitus Cancer History of heart disease Stroke Grandmother Breast cancer Mother Hypertension alcohol intake frequency: holidays/special occasions only Substance Use Type: does not use Exam <BREANNE Jesus - Last Filed: 01/26/22 15:06> Narrative Exam Narrative: Independently reviewed vitals signs and nursing notes. General: cooperative, comfortable, in no acute distress, well groomed, afebrile Head: atraumatic, symmetrical facial expressions Neck: supple, no anterior cervical lymphadenopathy Eyes: equal round and reactive, EOMI, conjunctiva normal Nose: nares patent, + rhinorrhea and congestion Mouth/Throat: moist mucus membranes Cardiovascular: regular rate and rhythm, S1-S2 without any murmur or tachycardia, no peripheral edema, warm extremities Respiratory: normal effort, able to speak in complete sentences, no audible wheezing, stridor, or rales. No retractions or tachypnea. Breath sounds are clear throughout all mcqueen GI: abdomen soft, nontender to palpation, nondistended, no masses, no exquisite tenderness with exam, without guarding or rebound. No CVA tenderness bilaterally MSK: moves all extremities, neurovascularly intact, no weakness, normal tone Skin: brisk capillary refill, no rash, no erythema Neuro: normal speech and cognition, A&O x3 Psych: mental status is grossly normal, congruent mood, normal affect, pleasant and cooperative Initial Vital Signs Initial Vital Signs: Vital Signs Temperature 97.9 F 01/26/22 12:10 Pulse Rate 75 01/26/22 12:10 Respiratory Rate 15 01/26/22 12:10 Blood Pressure 143/95 H 01/26/22 12:10 Pulse Oximetry 98 01/26/22 12:10 Oxygen Delivery Method 01/26/22 12:10 <Mary Jo Parson DO - Last Filed: 01/28/22 07:03> Initial Vital Signs Initial Vital Signs: Vital Signs Temperature 97.9 F 01/26/22 12:10 Pulse Rate 75 01/26/22 12:10 Respiratory Rate 15 01/26/22 12:10 Blood Pressure 143/95 H 01/26/22 12:10 Pulse Oximetry 98 01/26/22 12:10 Oxygen Delivery Method 01/26/22 12:10 Course <BREANNE Jesus - Last Filed: 01/26/22 15:06> Orders Ordered: Discontinued Medications Acetaminophen (Acetaminophen 325 Mg Tablet) 975 mg PO NOW ONE Stop: 01/26/22 13:54 Last Admin: 01/26/22 14:03 Dose: 975 mg Documented By: AVI Ketorolac Tromethamine (Ketorolac 30 Mg/Ml Vial) 15 mg IM NOW ONE Stop: 01/26/22 13:54 Last Admin: 01/26/22 14:03 Dose: 15 mg Documented By: AVI Ondansetron HCl (Ondansetron 4 Mg Odt) 4 mg SL NOW ONE Stop: 01/26/22 13:54 Last Admin: 01/26/22 14:03 Dose: 4 mg Documented By: AVI Phenazopyridine HCl (Phenazopyridine 100 Mg Tablet) 100 mg PO NOW ONE Stop: 01/26/22 13:56 Last Admin: 01/26/22 14:03 Dose: 100 mg Documented By: AVI Vital Signs Vital signs: Vital Signs - 8 hr 01/26/22 12:10 01/26/22 13:19 01/26/22 13:19 Temperature 97.9 F Pulse Rate 75 81 Respiratory Rate 15 20 Blood Pressure 143/95 H 160/102 H Pulse Oximetry 98 96 Oxygen Delivery Method Room Air 01/26/22 13:30 01/26/22 13:30 01/26/22 13:54 Temperature 97.6 F Pulse Rate 102 H 80 Respiratory Rate 18 Blood Pressure 133/100 H 133/69 Pulse Oximetry 96 98 Oxygen Delivery Method 01/26/22 14:03 Temperature 97.6 F Pulse Rate Respiratory Rate Blood Pressure Pulse Oximetry Oxygen Delivery Method <Mary Jo Parson DO - Last Filed: 01/28/22 07:03> Orders Ordered: Discontinued Medications Acetaminophen (Acetaminophen 325 Mg Tablet) 975 mg PO NOW ONE Stop: 01/26/22 13:54 Last Admin: 01/26/22 14:03 Dose: 975 mg Documented By: AVI Ketorolac Tromethamine (Ketorolac 30 Mg/Ml Vial) 15 mg IM NOW ONE Stop: 01/26/22 13:54 Last Admin: 01/26/22 14:03 Dose: 15 mg Documented By: AVI Ondansetron HCl (Ondansetron 4 Mg Odt) 4 mg SL NOW ONE Stop: 01/26/22 13:54 Last Admin: 01/26/22 14:03 Dose: 4 mg Documented By: AVI Phenazopyridine HCl (Phenazopyridine 100 Mg Tablet) 100 mg PO NOW ONE Stop: 01/26/22 13:56 Last Admin: 01/26/22 14:03 Dose: 100 mg Documented By: AVI Vital Signs Vital signs: Vital Signs - 8 hr 01/26/22 12:10 01/26/22 13:19 01/26/22 13:19 Temperature 97.9 F Pulse Rate 75 81 Respiratory Rate 15 20 Blood Pressure 143/95 H 160/102 H Pulse Oximetry 98 96 Oxygen Delivery Method Room Air 01/26/22 13:30 01/26/22 13:30 01/26/22 13:54 Temperature 97.6 F Pulse Rate 102 H 80 Respiratory Rate 18 Blood Pressure 133/100 H 133/69 Pulse Oximetry 96 98 Oxygen Delivery Method 01/26/22 14:03 Temperature 97.6 F Pulse Rate Respiratory Rate Blood Pressure Pulse Oximetry Oxygen Delivery Method MDM - Female Genitourinary <BREANNE Jesus - Last Filed: 01/26/22 15:06> Lab Data Labs: Lab Results 01/26/22 01/26/22 Range/Units 12:20 12:30 Urine Color Yellow Urine Appearance Clear Urine pH 5.5 (4.5-8.0) Ur Specific [place] 1.020 (1.000-1.035) Urine Protein Negative (Negative) Urine Glucose (UA) Negative (Negative) g/dL Urine Ketones Negative (NEGATIVE) Urine Occult Blood Negative (Negative) Urine Nitrate Negative (Negative) Urine Bilirubin Negative (NEGATIVE) Urine Urobilinogen 0.2 (0.2) E.U./dL Ur Leukocyte Esterase Negative (NEGATIVE) Urine RBC None seen (0-5/HPF) Urine WBC 0-1/hpf (0-5/HPF) Ur Squamous Epith Cells 1-5 /hpf (0-5/HPF) Urine Bacteria Occasional (0-1) D (None) Ur Culture Indicated? Cult not indicated Ur Chlamydia DNA (PCR) Not detected N gonorrhoeae DNA (PCR) Not detected Point of Care Testing Test Results Negative MDM Narrative Medical decision making narrative: This is a 36-year-old female presents to the emergency department seven days after testing positive for non COVID coronavirus and acute cystitis who endorses ongoing symptoms of dysuria, frequency and urgency, fatigue, headaches, nasal congestion. Patient's urine culture from 01/19/2022 showed mixed Gram-positive loida and was deemed unsuitable for further studies, opted to treat patient with cephalexin at that time for symptomatic cystitis. UA today only shows squamous epithelial cells, occasional bacteria on microscopy, urine culture was not indicated but ordered anyhow, there is no leukocyte esterase, likely contaminant from skin loida. Patient's TSH on her last evaluation was 0.341, she was going to her primary care provider today for this appointment but was 10 minutes late and came to the emergency department for evaluation of her symptoms. Patient wishes to start medication for her thyroid, she has a follow-up appointment scheduled tomorrow, discussed that she can do this with her primary care provider. This could be a reason why she is experiencing ongoing fatigue, discussed symptoms of COVID long hauler syndrome, patient endorses not feeling any better since she had COVID in August 2021. She is only seven days past testing positive for non COVID coronavirus so she could have ongoing symptoms from this as well. Encouraged her to treat her symptoms at home and to follow- up with her primary care provider tomorrow as scheduled for a another urine test. She was not prescribed any antibiotics for her urine at this time. Wet prep was obtained and was negative for all tested pathogens. Urine gonorrhea and chlamydia is still pending. Patient is appropriate and amenable to discharge home. Vital signs are stable on repeat examination is unremarkable. Patient has been informed of results. Patient has been given strict return to ER precautions for any new or worsening symptoms. Patient understands to follow up closely with outpatient providers as instructed. Patient understands plan and agrees to discharge home. All questions and concerns answered at this time. <Mary Jo Parson, DO - Last Filed: 01/28/22 07:03> Lab Data Labs: Lab Results 01/26/22 01/26/22 Range/Units 12:20 12:30 Urine Color Yellow Urine Appearance Clear Urine pH 5.5 (4.5-8.0) Ur Specific [place] 1.020 (1.000-1.035) Urine Protein Negative (Negative) Urine Glucose (UA) Negative (Negative) g/dL Urine Ketones Negative (NEGATIVE) Urine Occult Blood Negative (Negative) Urine Nitrate Negative (Negative) Urine Bilirubin Negative (NEGATIVE) Urine Urobilinogen 0.2 (0.2) E.U./dL Ur Leukocyte Esterase Negative (NEGATIVE) Urine RBC None seen (0-5/HPF) Urine WBC 0-1/hpf (0-5/HPF) Ur Squamous Epith Cells 1-5 /hpf (0-5/HPF) Urine Bacteria Occasional (0-1) D (None) Ur Culture Indicated? Cult not indicated Ur Chlamydia DNA (PCR) Not detected N gonorrhoeae DNA (PCR) Not detected Point of Care Testing Test Results Negative Discharge Plan Departure Patient Disposition: Home Clinical Impression: COVID-19 long hauler Instructions: DI for Viral Syndrome Activity Restrictions/Additional Instructions: *You have been diagnosed with COVID long hauler syndrome, this is a syndrome of symptoms similar to COVID infection which are ongoing for three months or more after COVID infection. You were diagnosed with non COVID coronavirus last week, your likely still having symptoms from that acute respiratory infection on top of your old respiratory symptoms. Your bladder may be having spasms still but your urine today does not show any infection. When you go to your primary care appointment tomorrow, please have them test your urine again. Please try and have concentrated urine for that test, your wet prep was negative for yeast, infection, or STD. We will call you if your gonorrhea or chlamydia are positive but I do not suppose that they are. Please use Tylenol and ibuprofen as needed for pain, fever, take Benadryl at night for congestion or to help you sleep, take Zyrtec each night to help with your symptoms as well. I hope you start feeling better soon, follow-up with your primary doctor tomorrow as scheduled. *What to do: *Please continue to take your regular medications as directed. [ ] New medication prescriptions sent to your pharmacy: [ ] [ ] New medication written as a paper prescription [x ] No new medications given *Please follow up with your primary care provider in 2-3 days, call for an appointment. Let them know you were seen in the Emergency Department and that we asked that you be seen for follow-up. We will electronically transmit a record of today's note if your PCP is in our system *If you do not have a primary care provider please contact [phone] to establish care with one of the [facility] primary care providers. *Return to Emergency Department if you should have any new, worsening or concerning symptoms, such as [fever greater than 101F, chills, worsening pain, persistent vomiting or other bothersome symptoms] Prescriptions: No Action escitalopram oxalate [Lexapro] 20 mg tablet 20 mg PO DAILY Qty: 30 2RF cephalexin 500 mg capsule 500 mg PO BID 5 Days Qty: 10 0RF acetaminophen [Tylenol] 325 mg capsule 650 mg PO QID PRN (Reason: pain) Qty: 60 0RF albuterol sulfate 90 mcg/actuation HFA aerosol inhaler 1 inh inhalation QID PRN (Reason: shortness of breath or wheezing) Qty: 8.5 0RF Referrals: Colin Man MD [Primary Care Provider] - Visit Report Forms: Patient Portal/API <Mary Jo Parson, - Last Filed: 01/28/22 07:03> Cosign ED Attending Coschanelleature Attestation: I was immediately available in the department for consultation. Documentation has been reviewed. I agree with assessment and plan.
[2022-01-26 13:54] VITALS: BP 133/69; PULSE 80; RESP 18; TEMP 36.4; O2SAT 98
[2022-01-26 14:03] VITALS: TEMP 36.4
[2022-01-26] MEDS: KETOROLAC 30 MG/ML VIAL 15 MG IM (14:03)
[2022-01-26] MEDS: ONDANSETRON 4 MG ODT SL (14:03)
[2022-01-26] MEDS: PHENAZOPYRIDINE 100 MG TABLET PO (14:03)
[2022-01-26] MEDS: ACETAMINOPHEN 325 MG TABLET 975 MG PO (14:03)
[2022-01-26 15:08] LABS: Urine N gonorrhoeae NOT DETECTED
[2022-01-26 15:10] LABS: Urine Chlamydia NOT DETECTED
== END 2022-01-26 14:49 | disposition home or self-care (01) ==
PROVIDERS: Emergency Medicine; Emergency Provider Nurse Practitioner Critical Care Medicine; PCP Pediatrics
DX: U09.9 Post COVID-19 condition, unspecified (principal)
CPT/HCPCS: 81001; 81025; 87086; 87210; 87491; 87591; 96372; 99283; J1885

== ENCOUNTER → 2022-02-09 13:25 | Outpatient (CLI) | payer OTHER, SELFPAY ==
[2022-02-09 13:49] LABS: Appearance Urine UA CLEAR; Bilirubin Urine UA NEGATIVE (NEGATIVE); Color Urine UA YELLOW; Glucose Urine UA NEGATIVE (Negative); Ketones Urine UA NEGATIVE (NEGATIVE); Leukocyte Esterase Urine UA TRACE (NEGATIVE); Nitrite Urine UA NEGATIVE (Negative); Occult Blood Urine UA NEGATIVE (Negative); Protein Urine UA NEGATIVE (Negative); Urobilinogen Urine UA 0.2 E.U./dL (0.2)
[2022-02-09 13:50] LABS: pH Urine UA 5.5 (4.5-8.0)
[2022-02-09 14:04] LABS: Bacteria Urine Moderate (10-30); Culture Indicated Urine Specimen Cultured; RBC Urine None Seen (0-5/HPF); Squamous Epithelial Cell Urine 1-5 /HPF (0-5/HPF); WBC Urine 1-5/HPF (0-5/HPF)
[2022-02-09 15:02] LABS: TSH w/ Reflex to FT4 0.39 uIU/mL (0.47-4.68)
[2022-02-09 16:02] LABS: Free T4, Direct Thyroxine 1.07 ng/dL (0.78-2.19)
== END ==
PROVIDERS: PCP Pediatrics; Referring Provider Pediatrics; Visit Provider Pediatrics
DX: E03.9 Hypothyroidism, unspecified (principal); N39.0 Urinary tract infection, site not specified
CPT/HCPCS: 36415; 81001; 84439; 84443; 87086

== ENCOUNTER → 2022-02-10 12:02 | Outpatient (CLI) | payer OTHER, SELFPAY ==
[2022-02-10 13:07] LABS: Erythrocyte Sedimentation Rate 6 MM/HR (0-20)
[2022-02-10 13:26] LABS: C-Reactive Protein Quant < 0.5 mg/dL (<1.0)
== END ==
PROVIDERS: PCP Pediatrics; Referring Provider Pediatrics; Visit Provider Pediatrics
DX: R60.9 Edema, unspecified (principal); U07.1 COVID-19
CPT/HCPCS: 36415; 85651; 86140

== ENCOUNTER 2022-05-04 16:06 | Emergency (ER) | payer OTHER, SELFPAY ==
[2022-05-04 16:10] VITALS: BP 145/90; PULSE 78; RESP 14; TEMP 36.5; O2SAT 99; BMI 27.4
[2022-05-04 17:01] LABS: COVID19 -Nasal RAPID Negative (Negative)
--- NOTE | 2022-05-04 18:28 | DI.RAD.S_ITS ---
PROCEDURE: XR CHEST 2V INDICATIONS: SOB TECHNIQUE: 2 views of the chest were acquired. COMPARISON: None. FINDINGS: Surgical changes and devices: None. Lungs and pleura: Lungs are clear. No pleural effusions or pneumothorax. Mediastinum: Mediastinal contours are normal. Heart size is normal. Bones and chest wall: No suspicious bony abnormalities. Soft tissues appear unremarkable. IMPRESSION: No acute cardiopulmonary abnormalities or focal airspace disease. Dictated by: David Munguia M.D. on 05/04/2022 at 19:16 Approved by: David Munguia M.D. on 05/04/2022 at 19:16
--- NOTE | 2022-05-04 19:45 | ED.ASTHMA ---
HPI - Asthma General Chief Complaint: Asthma Stated Complaint: Asthma, Inhaler not helping Time Seen by Provider: 05/04/22 18:13 Source: patient Mode of arrival: Ambulatory History of Present Illness HPI Narrative: 36-year-old female nonsmoker with history of asthma presents with a chief complaint of the past day or 2 of a tight, wheezy cough and difficulty breathing. She does have a nebulizer but is without the nebs. She frequently uses an albuterol inhaler but has not had a chamber. She denies any fever or chills. She is had no runny nose, sneezing. She denies nausea, vomiting or diarrhea. Related Data Previous Rx's Medication Instructions Recorded acetaminophen 325 mg capsule 650 mg PO QID PRN pain #60 caps 05/05/21 (Tylenol) albuterol sulfate 90 mcg/actuation 1 inh inhalation QID PRN shortness 09/21/21 aerosol inhaler of breath or wheezing #8.5 grams trazodone 50 mg tablet 25 mg PO DAILY #45 tabs 05/01/22 escitalopram oxalate 20 mg tablet 20 mg PO DAILY #90 tabs 05/02/22 (Lexapro) albuterol sulfate 2.5 mg/3 mL 2.5 mg (3 mL) inhalation Q4-6H PRN 05/04/22 (0.083 %) solution for nebulization shortness of breath or wheezing #90 mL prednisone 20 mg tablet 20 mg PO DAILY #5 tabs 05/04/22 Allergies Allergy/AdvReac Type Severity Reaction Status Date / Time sweet potato Allergy Severe throut Verified 05/04/22 16:18 itchy, eye swelling and itchy. Review of Systems Review of Systems Narrative: GENERAL: See HPI HEENT: Denies sinus pain, ear pain, sore throat, difficulty swallowing, dizziness. RESPIRATORY: See HPI CARDIOVASCULAR: Denies chest pain, palpitations, orthopnea, edema, GASTROINTESTINAL: Denies nausea, vomiting, abdominal pain, diarrhea, constipation, melena. : Denies dysuria, frequency, incontinence, hematuria, urinary retention. MUSCULOSKELETAL: denies weakness, joint pain, or bony pain SKIN: Denies rash, skin lesions, or other NEUROLOGIC: Denies weakness, headache, numbness, change in speech, confusion, seizures, incoordination. PSYCHIATRIC: No concerning psychosocial issues. 12 point review of systems is negative except for those stated above Patient History Medical History Cervical cancer screening COVID-19 long hauler Headache associated with infection Headache, migraine (~2009) Hemorrhoids (~2013) Surgical History Anesthesia History of surgical removal of ganglion cyst (11/2016) Hx of hemorrhoidectomy (01/18/21) Hx of tubal ligation (12/2018) Family History Grandmother Hypertension Diabetes mellitus Cancer History of heart disease Stroke Grandmother Breast cancer Mother Hypertension Social History marital status: household members: spouse and children Smoking Status: Never smoker alcohol intake: never substance use type: does not use Smoking Status: Never smoker alcohol intake frequency: holidays/special occasions only Substance Use Type: does not use Exam Narrative Exam Narrative: GENERAL: [36] year old patient appears stated age. Well-developed patient, in mild distress. HEAD: Atraumatic. Normocephalic. EYES: Pupils equal round and reactive. Extraocular motions intact. No scleral icterus. No injection or drainage. ENT: Nose without bleeding, purulent drainage. Throat without erythema, tonsillar hypertrophy or exudate. Airway patent. NECK: Trachea midline. Non tender CARDIOVASCULAR: Regular rate and rhythm without murmurs, gallops, or rubs. RESPIRATORY: No significant work of breathing, mild expiratory wheeze in all mcqueen, no rales or rhonchi. GASTROINTESTINAL: Abdomen soft, non-tender, nondistended. EXTREMITIES: No edema or joint tenderness. BACK: Nontender without deformity or crepitance. No flank tenderness. NEURO: AOx3. SKIN: No rash or erythema of visible areas Initial Vital Signs Initial Vital Signs: Vital Signs Temperature 97.7 F 05/04/22 16:10 Pulse Rate 78 05/04/22 16:10 Respiratory Rate 14 05/04/22 16:10 Blood Pressure 145/90 H 05/04/22 16:10 Pulse Oximetry 99 05/04/22 16:10 Oxygen Delivery Method 05/04/22 16:10 Course Orders Ordered: ED Orders 05/04/22 16:16 COVID19 -Nasal RAPID/Pre-Proc Stat 05/04/22 16:18 Consult to Respiratory Therapy Evaluate & Treat 05/04/22 18:28 Chest [XR chest 2V] Stat Vital Signs Vital signs: Vital Signs - 8 hr 05/04/22 16:10 05/04/22 19:46 Temperature 97.7 F Pulse Rate 78 75 Respiratory Rate 14 20 Blood Pressure 145/90 H 131/90 Pulse Oximetry 99 100 Oxygen Delivery Method Room Air Room Air MDM - Asthma Lab Data Labs: Lab Results 05/04/22 Range/Units 16:16 SARS-CoV-2 (PCR) Negative (Negative) Discharge Plan Departure Patient Disposition: Home Clinical Impression: Asthma with acute exacerbation Instructions: DI for Asthma -- Adult Activity Restrictions/Additional Instructions: *You have been diagnosed with [asthma exacerbation] *What to do: *Please continue to take your regular medications as directed. [ x] New medication prescriptions sent to your pharmacy: [[facility] [place]] [ ] New medication written as a paper prescription [ ] No new medications given *Please follow up with your primary care provider in 2-3 days, call for an appointment. Let them know you were seen in the Emergency Department and that we ask that you be seen in follow up. We will electronically transmit a record of today's note if your PCP is in our system *If you do not have a primary care provider please contact the [facility] Resource line at [phone]. They will ask some questions about your medical history and help get you set up with a doctor in the community. *Return to Emergency Department if you should have any new, worsening or concerning symptoms, such as [fever greater than 101 F, shaking chills, worsening pain, persistent vomiting or other bothersome symptoms] Prescriptions: New prednisone 20 mg tablet 20 mg PO DAILY Qty: 5 0RF Rx Instructions: administer with food or milk albuterol sulfate 2.5 mg /3 mL (0.083 %) solution for nebulization 2.5 mg INHALATION Q4-6H PRN (Reason: shortness of breath or wheezing) Qty: 90 0RF No Action trazodone 50 mg tablet 25 mg PO DAILY Qty: 45 0RF Rx Instructions: CAUTION REGARDING SEROTONIN SYNDROME WITH WORSENING DEPRESSIVE SYMPTOMS, INSOMNIA, CONFUSION, DIZZINESS IN COMBINATION WITH ESCITALOPRAM USE. escitalopram oxalate [Lexapro] 20 mg tablet 20 mg PO DAILY Qty: 90 0RF acetaminophen [Tylenol] 325 mg capsule 650 mg PO QID PRN (Reason: pain) Qty: 60 0RF albuterol sulfate 90 mcg/actuation HFA aerosol inhaler 1 inh inhalation QID PRN (Reason: shortness of breath or wheezing) Qty: 8.5 0RF Referrals: Ramona Reynolds DO [Primary Care Provider] -
[2022-05-04 19:46] VITALS: BP 131/90; PULSE 75; RESP 20; O2SAT 100
--- NOTE | 2022-05-04 19:47 | PC.NURSE ---
Pt resting calmly in bed and reports that she feels a great improvement in her breathing after receiving her usual MDI with the spacer that RT provided. Pt feel comfortable going home and is glad to have a spacer now. She states, It now feels like I'm actually getting the proper effects from my inhaler. MD notified.
== END 2022-05-04 19:57 | disposition home or self-care (01) ==
PROVIDERS: Emergency Medicine; Emergency Provider Emergency Medicine; PCP Family Medicine
DX: J45.901 Unspecified asthma with (acute) exacerbation (principal); Z20.822 Contact with and (suspected) exposure to COVID-19; Z86.16 Personal history of COVID-19
CPT/HCPCS: 71046; 87635; 99281; 99283; C9803

== ENCOUNTER → 2022-11-13 10:05 | Outpatient (CLI) | payer OTHER, SELFPAY ==
[2022-11-13 14:46] LABS: Influenza A - CEPHEID Flu A NEGATIVE (NEGATIVE); Influenza B - CEPHEID Flu B NEGATIVE (NEGATIVE); Respiratory Syncytial Virus Negative (Negative)
[2022-11-13 14:53] LABS: COVID-19 CEPHEID 4-PLEX PCR Negative (Negative)
== END ==
PROVIDERS: PCP Family Medicine; Visit Provider Physician Assistant
DX: J02.9 Acute pharyngitis, unspecified (principal); R05.1 Acute cough
CPT/HCPCS: 0241U; 87070

== ENCOUNTER 2023-09-25 20:20 | Emergency (ER) | payer OTHER, SELFPAY ==
[2023-09-25 20:33] VITALS: BP 139/90; PULSE 96; RESP 16; TEMP 36.4; O2SAT 98; BMI 25.7
--- NOTE | 2023-09-25 20:38 | DI.RAD.S_ITS ---
PROCEDURE: XR FOOT RT MIN 3V INDICATIONS: pain after injury TECHNIQUE: 3 views of the foot were acquired. COMPARISON: None. FINDINGS: Bones: No fractures or dislocations. No suspicious bony lesions. Soft tissues: No tibiotalar joint effusion. Achilles tendon appears normal. IMPRESSION: No acute bony abnormality. Dictated by: Sanchez Melgoza M.D. on 09/25/2023 at 20:58 Approved by: Sanchez Melgoza M.D. on 09/25/2023 at 20:59
--- NOTE | 2023-09-25 22:25 | ED.LOWEXIN ---
HPI - Extremity Injury (Lower) General Chief Complaint: Extremity Injury, Lower Stated Complaint: rt foot injury Time Seen by Provider: 09/25/23 22:20 Source: patient Mode of arrival: Ambulatory History of Present Illness HPI Narrative: Patient is a 38-year-old female who is here for evaluation of a right foot injury. She states that it occurred just this evening while doing taekwondo. States that it got rolled up underneath her. She has pain on the top outside of the foot just below the toes. Some slight bruising to the area. Related Data Home Medications Medication Instructions Recorded Confirmed escitalopram oxalate 20 mg tablet 20 mg PO DAILY 06/18/23 multivitamin 1 tab PO DAILY 06/18/23 Previous Rx's Medication Instructions Recorded epinephrine 0.3 mg/0.3 mL 0.3 ml IM Q5-15M PRN anaphylaxis 06/18/23 injection, auto-injector #2 ea trazodone 50 mg tablet 50 mg PO BEDTIME PRN sleep #30 tabs 09/13/23 Allergies Allergy/AdvReac Type Severity Reaction Status Date / Time sweet potato Allergy Severe throut Verified 09/25/23 20:32 itchy, eye swelling and itchy. Review of Systems Musculoskeletal Musculoskeletal: Reports system reviewed and no additional complaints, except as documented Integumentary/Breasts Skin/Breast: Reports system reviewed and no additional complaints, except as documented Neurologic Neurologic: Reports system reviewed and no additional complaints, except as documented Patient History Medical History Migraine headache without aura Family history of breast cancer Tendinitis of left forearm Headache associated with infection COVID-19 long hauler Headache, migraine (~2009) Cervical cancer screening Hemorrhoids (~2013) Surgical History Hx of hemorrhoidectomy (01/18/21) Anesthesia History of surgical removal of ganglion cyst (11/2016) Hx of tubal ligation (12/2018) Family History Grandmother Hypertension Diabetes mellitus Cancer History of heart disease Stroke Grandmother Breast cancer Mother Hypertension Social History marital status: household members: spouse and children Smoking Status: Never smoker alcohol intake: never substance use type: does not use Smoking Status: Never smoker alcohol intake frequency: holidays/special occasions only Substance Use Type: does not use Exam Initial Vital Signs Initial Vital Signs: Vital Signs Temperature 97.5 F L 09/25/23 20:33 Pulse Rate 96 H 09/25/23 20:33 Respiratory Rate 16 09/25/23 20:33 Blood Pressure 139/90 09/25/23 20:33 Pulse Oximetry 98 09/25/23 20:33 Oxygen Delivery Method Room Air 09/25/23 20:33 Cardio Pulses: dorsalis pedis present on the right Skin Other: Very small amount of bruising on the dorsum of the right foot at the base of the 4th and 5th toes. Neuro Sensory Exam: no sensory deficits noted Extrem Other: Discomfort on the dorsum lateral aspect of the right foot. Course Orders Ordered: ED Orders 09/25/23 20:38 XR foot RT min 3V Stat Vital Signs Vital signs: Vital Signs - 8 hr 09/25/23 20:33 Temperature 97.5 F L Pulse Rate 96 H Respiratory Rate 16 Blood Pressure 139/90 Pulse Oximetry 98 Oxygen Delivery Method Room Air MDM - Extremity Injury (Lower) Imaging Data Extremity x-ray #1: Radiologist's Impression: PROCEDURE: XR FOOT RT MIN 3V INDICATIONS: pain after injury TECHNIQUE: 3 views of the foot were acquired. COMPARISON: None. FINDINGS: Bones: No fractures or dislocations. No suspicious bony lesions. Soft tissues: No tibiotalar joint effusion. Achilles tendon appears normal. IMPRESSION: No acute bony abnormality. [facility] Narrative Medical decision making narrative: No fractures noted on the x-ray. She does have bruising in the dorsum of the foot. No discomfort at the base of the 5th metatarsal. Ankles unremarkable. No discomfort on the Lisfranc joint. Will discharge home with conservative measures. She was given return precautions. She expressed understanding and agreement. Discharge Plan Departure Patient Disposition: Home Clinical Impression: Foot sprain Instructions: How To Perform RICE (Rest, Ice, Compress, Elevate) Activity Restrictions/Additional Instructions: You can walk on your foot as tolerated. Recommend that you use ice. Return to the emergency department for new symptoms. Prescriptions: No Action epinephrine 0.3 mg/0.3 mL auto-injector 0.3 ml IM Q5-15M PRN (Reason: anaphylaxis) Qty: 2 1RF Rx Instructions: do not exceed 3 doses per episode escitalopram oxalate 20 mg tablet 20 mg PO DAILY multivitamin Tablet 1 tab PO DAILY trazodone 50 mg tablet 50 mg PO BEDTIME PRN (Reason: sleep) Qty: 30 2RF Referrals: Ryan Miller DO [Primary Care Provider] - Stand Alone Forms: Patient Portal/API
--- NOTE | 2023-09-25 22:38 | PC.NURSE ---
assessment done by provider
== END 2023-09-25 22:40 | disposition home or self-care (01) ==
PROVIDERS: Emergency Provider Emergency Medicine; PCP Family Medicine
DX: S93.601D Unspecified sprain of right foot, subsequent encounter (principal); X50.1XXA Overexertion from prolonged static or awkward postures, initial encounter
CPT/HCPCS: 73630; 99283

== ENCOUNTER → 2024-04-14 17:20 | Outpatient (CLI) | payer OTHER, SELFPAY ==
--- NOTE | 2024-04-14 17:21 | DI.RAD.S_ITS ---
PROCEDURE: XR CERVICAL SPINE 2V OR 3V INDICATIONS: eval neck pain TECHNIQUE: Three views (s) of the cervical spine were acquired. COMPARISON: None. FINDINGS: Cervical spine curvature and alignment: Normal. Bones: There are no osseous abnormalities. Disc spaces: Normal in height without significant degeneration. Intervertebral foramen: Grossly normal in width. Soft tissues: No soft tissue swelling, calcification or mass. IMPRESSION: Normal cervical spine. Dictated by: Randall Alaniz M.D. on 04/15/2024 at 8:33 Approved by: Randall Alaniz M.D. on 04/15/2024 at 8:34
== END ==
LOC: RAD 17:21
PROVIDERS: PCP Family Medicine; Referring Provider Family Medicine; Visit Provider Family Medicine
DX: S16.1XXA Strain of muscle, fascia and tendon at neck level, initial encounter (principal); X58.XXXA Exposure to other specified factors, initial encounter
CPT/HCPCS: 72040

== ENCOUNTER 2024-04-23 13:17 | Emergency (ER) | payer OTHER, SELFPAY ==
[2024-04-23 13:27] VITALS: BP 164/107; PULSE 88; RESP 16; TEMP 36.4; O2SAT 98; BMI 26.6
[2024-04-23] MEDS: ALBUTEROL/IPRATROPIUM 3 ML AMPUL INH (13:50)
[2024-04-23 13:51] VITALS: PULSE 83; RESP 18; O2SAT 98
--- NOTE | 2024-04-23 14:18 | ED.GENADULT ---
HPI - General Adult General Chief complaint: Shortness of Breath/Dyspnea Stated complaint: COVID+, Not Improving, SoB Time Seen by Provider: 04/23/24 13:51 Mode of arrival: Family Vehicle Related Data Home Medications Medication Instructions Recorded Confirmed multivitamin 1 tab PO DAILY 06/18/23 04/14/24 Previous Rx's Medication Instructions Recorded epinephrine 0.3 mg/0.3 mL 0.3 ml IM Q5-15M PRN anaphylaxis 06/18/23 injection, auto-injector #2 ea trazodone 50 mg tablet 50 mg PO BEDTIME PRN sleep #30 tabs 04/02/24 meloxicam 15 mg tablet 15 mg PO DAILY #30 tabs 04/14/24 methocarbamol 500 mg tablet 500 mg PO BID #60 tabs 04/14/24 escitalopram oxalate 20 mg tablet 20 mg PO DAILY #90 tabs 04/22/24 prednisone 20 mg tablet 20 mg PO DAILY #5 tabs 04/23/24 Allergies Allergy/AdvReac Type Severity Reaction Status Date / Time sweet potato Allergy Severe throut Verified 04/23/24 13:31 itchy, eye swelling and itchy. Patient History Medical History (Updated 04/23/24 @ 14:20 by Alexa Burnette MD) Cervical strain, acute Migraine headache without aura Family history of breast cancer Tendinitis of left forearm Headache associated with infection COVID-19 long hauler Headache, migraine (~2009) Cervical cancer screening Hemorrhoids (~2013) Surgical History Hx of hemorrhoidectomy (01/18/21) Anesthesia History of surgical removal of ganglion cyst (11/2016) Hx of tubal ligation (12/2018) Family History Grandmother Hypertension Diabetes mellitus Cancer History of heart disease Stroke Grandmother Breast cancer Mother Hypertension Social History marital status: household members: spouse and children Smoking Status: Never smoker alcohol intake: never substance use type: does not use Smoking Status: Never smoker alcohol intake frequency: holidays/special occasions only Substance Use Type: does not use Exam Initial Vital Signs Initial Vital Signs: Vital Signs Temperature 97.6 F 04/23/24 13:27 Pulse Rate 88 04/23/24 13:27 Respiratory Rate 16 04/23/24 13:27 Blood Pressure 164/107 H 04/23/24 13:27 Pulse Oximetry 98 04/23/24 13:27 Oxygen Delivery Method Room Air 04/23/24 13:27 Course Orders Ordered: Discontinued Medications Albuterol/Ipratropium (Albuterol/Ipratropium 3 Ml Ampul) 3 ml INH NOW ONE Stop: 04/23/24 13:41 Last Admin: 04/23/24 13:50 Dose: 3 ml Documented By: CAMILA Vital Signs Vital signs: Vital Signs - 8 hr 04/23/24 13:27 04/23/24 13:51 Temperature 97.6 F Pulse Rate 88 83 Respiratory Rate 16 18 Blood Pressure 164/107 H Pulse Oximetry 98 98 Oxygen Delivery Method Room Air Room Air Discharge Plan Departure Patient Disposition: Home Clinical Impression: COVID-19 Asthma Qualifiers: Asthma severity: mild Asthma persistence: intermittent Asthma complication type: with acute exacerbation Qualified Code(s): J45.21 - Mild intermittent asthma with (acute) exacerbation Instructions: DI for Asthma -- Adult, DI for COVID-19 (Suspected or Confirmed ) Activity Restrictions/Additional Instructions: Thank you for coming in today You do not have any signs of bacterial pneumonia. I am sorry that you are so miserable with your current COVID infection You are already doing everything right I do not have many other suggestions but some include: 5 days of prednisone to help with the chest tightness, prescription was electronically transmitted to [facility] in [place] Using your albuterol nebulizer before bed so that the chest tightness is not waking you up Continuing to use the Afrin nose spray before bed so the nasal congestion isn't waking you up Using 400 mg of ibuprofen (2 [id number] pills) and 1 Tylenol every 6 hours can be very helpful in controlling pain. I would recommend going back to work no earlier than Sunday. Please allow your body the time in the rest it needs to heal. If you find that you are getting worse or develop any new symptoms, please feel free to return to the emergency department for further evaluation. Prescriptions: New prednisone 20 mg tablet 20 mg PO DAILY Qty: 5 0RF No Action epinephrine 0.3 mg/0.3 mL auto-injector 0.3 ml IM Q5-15M PRN (Reason: anaphylaxis) Qty: 2 1RF Rx Instructions: do not exceed 3 doses per episode multivitamin Tablet 1 tab PO DAILY trazodone 50 mg tablet 50 mg PO BEDTIME PRN (Reason: sleep) Qty: 30 2RF escitalopram oxalate 20 mg tablet 20 mg PO DAILY Qty: 90 1RF meloxicam 15 mg tablet 15 mg PO DAILY Qty: 30 1RF methocarbamol 500 mg tablet 500 mg PO BID Qty: 60 1RF Referrals: Ryan Miller DO [Primary Care Provider] - Stand Alone Forms: Patient Portal/API
[2024-04-23 14:41] VITALS: PULSE 79; O2SAT 98
--- NOTE | 2024-04-23 14:42 | PC.NURSE ---
Pt states she feels SOB. she says she has been taking her home albuterol w/ no improvement. Pt states her albuterol is not and she has refills available. Pt states she has a hx of asthma. Pt reports her daughter is also sick at home. States she took a home COVID test which was positive.
[2024-04-23 14:52] VITALS: RESP 16; TEMP 37.1
== END 2024-04-23 14:52 | disposition home or self-care (01) ==
PROVIDERS: Emergency Provider Emergency Medicine; PCP Family Medicine
DX: J45.21 Mild intermittent asthma with (acute) exacerbation (principal); U07.1 COVID-19
CPT/HCPCS: 94640; 99283

== ENCOUNTER → 2024-08-13 18:39 | Outpatient (CLI) | payer OTHER, SELFPAY ==
--- NOTE | 2024-08-13 18:41 | DI.MRI.S_ITS ---
PROCEDURE: MR CERVICAL SPINE WO CON INDICATIONS: persistent neck pain w radiculopathy TECHNIQUE: Noncontrast sagittal T1 spin echo and T2 fast spin echo, sagittal STIR, foraminal oblique sagittal T2 fast spin echo, and axial gradient echo or T2 fast spin echo through the cervical spine. COMPARISON: None. FINDINGS: Image quality: Excellent. Alignment and Curvature: There is normal bony alignment. Bone Marrow: Marrow demonstrates normal overall signal. Spinal Cord: Visualized spinal cord has normal size and signal. No cerebellar tonsillar herniation. Paraspinous Soft Tissues: No paravertebral masses. Prevertebral soft tissues are normal in thickness. C2-C3: No disc bulge, spinal stenosis or foraminal narrowing. C3-C4: No disc bulge, spinal stenosis or foraminal narrowing. C4-C5: No disc bulge, spinal stenosis or foraminal narrowing. C5-C6: Minimal disc bulge without spinal stenosis or foraminal narrowing. C6-C7: No disc bulge, spinal stenosis or foraminal narrowing. C7-T1: No disc bulge, spinal stenosis or foraminal narrowing. IMPRESSION: Very minimal early degenerative changes most notable at C5-6. Dictated by: Annabelle Monzon M.D. on 08/14/2024 at 10:42 Approved by: Annabelle Monzon M.D. on 08/14/2024 at 10:46
== END ==
LOC: MRI 18:40
PROVIDERS: PCP Family Medicine; Referring Provider Family Medicine; Visit Provider Family Medicine
DX: S16.1XXA Strain of muscle, fascia and tendon at neck level, initial encounter (principal); M54.2 Cervicalgia; M54.12 Radiculopathy, cervical region; X58.XXXA Exposure to other specified factors, initial encounter
CPT/HCPCS: 72141